=== PATIENT | male | born 1960 | race Caucasian/White ===

== ENCOUNTER 2021-02-07 | Observation (INO) | payer MEDICAID, SELFPAY ==
[2021-02-07] VITALS (16 sets, daily range): BP systolic 100–190; BP diastolic 47–86; PULSE 51–70; RESP 14–20; TEMP 36.1–37.3; O2SAT 90–100; BMI 28.7
--- NOTE | 2021-02-07 | ECHO_ITS ---
Patient Info Name: Raulito Baig Age: 61 years : 1960 Gender: Male Ht: 71 in Wt: 205 lbs BSA: 2.18 m2 HR: 56 bpm BP: 173 / 76 mmHg Technical Quality: Fair Exam Date: 02/07/2021 1:04 PM Exam Location: [facility] Patient Status: Outpatient Admit Date: 02/07/2021 Staff Ordering Physician: Gera Moss MD Community Program Assistant: Magalie Syed RDCS Attending Provider: Shashi Ly MD Exam Type: CA echo doppler color flow Study Info Complete two-dimensional, color flow and Doppler transthoracic echocardiogram is performed. Summary 1. Complete two-dimensional, color flow and Doppler transthoracic echocardiogram is performed. 2. Left ventricular chamber dimension is normal. 3. Left ventricular systolic function is hyperdynamic, estimated at >70%. 4. There is moderately increased left ventricular wall thickness. 5. The left ventricular diastolic function is grade I diastolic dysfunction. 6. E/e' 19 is elevated. 7. Left atrial chamber dimension is moderately enlarged. 8. There is moderate aortic valve sclerosis. 9. There is moderate aortic valve stenosis with a peak velocity of 445 cm/s, mean gradient of 12 mmHg, and aortic valve area of 1.3 cm2. 10. There is mild to moderate aortic valve regurgitation. 11. The mitral valve has moderately calcified annulus. 12. There is mild mitral valve regurgitation. 13. No pulmonary hypertension, estimated pulmonary arterial systolic pressure is 19 mmHg. Left Ventricle E/e' 19 is elevated. Left ventricular chamber dimension is normal. Left ventricular systolic function is hyperdynamic, estimated at >70%. There is moderately increased left ventricular wall thickness. The left ventricular diastolic function is grade I diastolic dysfunction. Right Ventricle Right ventricular systolic function is normal and with normal TAPSE 3.5 cm. Right ventricular chamber dimension is normal. Left Atria Left atrial chamber dimension is moderately enlarged. Right Atria Right atrial chamber dimension is normal. Aortic Valve The aortic valve is probable trileaflet. There is moderate aortic valve sclerosis. There is moderate aortic valve stenosis with a peak velocity of 445 cm/s, mean gradient of 12 mmHg, and aortic valve area of 1.3 cm2. There is mild to moderate aortic valve regurgitation. Pulmonic Valve There is no pulmonic regurgitation. Mitral Valve The mitral valve has moderately calcified annulus. There is no mitral valve stenosis. There is mild mitral valve regurgitation. Tricuspid Valve There is no tricuspid valve regurgitation. No pulmonary hypertension, estimated pulmonary arterial systolic pressure is 19 mmHg. Pericardium/Pleural There is no pericardial effusion. Inferior Vena Cava Normal inferior vena cava with >50% collapse upon inspiration consistent with normal right atrial pressure, 5 mmHg. Aorta The aortic root size at the sinus of Valsalva is normal. Left Ventricular Outflow Tract Name Value Normal LVOT 2D LVOT Diameter 2.3 cm LVOT Doppler LVOT Peak Gradient 5 mmHg LVOT Mean Gradient 2 mmHg
--- NOTE | ~2021-02-07 | XR_ITS ---
XR chest 1V portable 02/07/2021 01:10 Indication: Hypoxia Procedure: AP portable chest Comparison: No prior studies for comparison. Findings: Elevated right diaphragm. Mild interstitial edema. Right basilar atelectasis. Borderline he art size for technique. Impression: 1: Borderline heart size with mild interstitial edema. Reviewed, dictated and finalized at location A. Impression: 1: Borderline heart size with mild interstitial edema.
--- NOTE | ~2021-02-07 | CT_ITS ---
EXAMINATION: CT abdomen pelvis wo con DATE: 02/07/2021 03:35 INDICATION: Cellulitis TECHNIQUE: Computed tomography (CT) of the abdomen and pelvis was performed without intravenous contr ast. The dose-length product was 737.65 mGy-cm. Automated exposure control and iterative reconstruction technique were employed. COMPARISON: Scrotal ultrasound dated 02/07/2021. FINDINGS: Left lower lobe atelectasis. Cardiomegaly. No significant pleural or pericardial effusion. Mildly elevated right diaphragm. Gallstones. The liver, adrenal glands and kidneys are unremarkable. Spleen within normal limits. No pancreatic abnormalities. There is scrotal wall thickening and edema, consistent with cellulitis. No abnormal gas in the soft tissues. No obvious abscess. Nonobstructive bowel gas pattern. No free air or free fluid. There is surgical change in the abdomen and pelvis. IMPRESSION: 1. Scrotal wall thickening with edema, consistent with cellulitis. 2: Cholelithiasis. Reviewed, dictated and finalized at location A.
--- NOTE | ~2021-02-07 | US_ITS ---
US scrotum doppler INDICATION: Right scrotal cellulitis TECHNIQUE: Testicular sonogram utilizing grayscale and color Doppler FINDINGS: Left testicle is surgically absent. There is diffuse thickening of the scrotal soft tissues with hyperemia. Normal testicular flow. Epididymis unremarkable. IMPRESSION: 1. Diffuse right extratesticular scrotal soft tissue edema with hyperemia, compatible with celluliti s. Reviewed, dictated and finalized at location A. IMPRESSION: 1. Diffuse right extratesticular scrotal soft tissue edema with hyperemia, com patible with cellulitis.
--- NOTE | ~2021-02-07 | US_ITS ---
EXAMINATION: US venous doppler [facility] DATE: 02/09/2021 11:01 INDICATION: Left lower limb swelling. TECHNIQUE: Grayscale ultrasound images without and with compression and Doppler ultrasound images of the left lower extremity veins were obtained. COMPARISON: None. FINDINGS: The visualized portions of left common femoral vein, profunda (deep) femoral vein, femoral vein, popl iteal vein, peroneal veins, posterior tibial veins, and greater saphenous vein outflow are patent. IMPRESSION: 1. No deep venous thrombosis. Reviewed, dictated and finalized at location A.
--- NOTE | 2021-02-07 00:41 | ED.MALEGU ---
HPI - Male Genitourinary General Chief complaint: Urogenital-Male Stated complaint: TESTICULAR PAIN Time Seen by Provider: 02/07/21 00:25 History of Present Illness HPI Narrative: History limited by poor historian. 61 yo male w/ h/o testicular cancer s/p left orchiectomy presents to the ED c/o testicle pain. He reports that he has had pain and swelling to the scrotum and testicles for quite some time. He was previously seen at another hospital and put on antibiotcs. This helped temporarily. It is not clear exactly when his symptoms started. No fever. Related Data Allergies Allergy/AdvReac Type Severity Reaction Status Date / Time iohexol Allergy Severe Anaphylaxis Verified 02/07/21 03:43 [From contrast - CT, X-RAY] Review of Systems Constitutional: Constitutional: Denies fever(s) Eyes: Eyes: Reports no additional eye complaints Cardiovascular: Cardiovascular: Denies chest pain Respiratory: Respiratory: Denies dyspnea Gastrointestinal: Gastrointestinal: Denies abdominal pain Genitourinary: Genitourinary: Reports as per HPI Neurologic: Reports system reviewed and no additional complaints, except as documented [facility] Past Medical History Medical History (Updated 02/07/21 @ 06:41 by Larry Meyers MD) Hypertension Surgical History Surgical History (Updated 02/07/21 @ 06:37 by Larry Meyers MD) History of orchiectomy Social History Social History (Updated 02/07/21 @ 06:37 by Larry Meyers MD) Smoking status: Current every day smoker Exam Const: General: no acute distress, alert and ill appearing chronically HENMT: Head: normal to inspection Mouth: Yes dry mucous membranes Eyes: Pupils: Equal, round and reactive pupils present Neck: Neck: normal visual inspection Resp: Effort & Inspection: normal respiratory effort Auscultation: rhonchi Cardio: Rate: bradycardic Rhythm: regular rhythm GI: GI Palp: Yes Soft to palpation and No Tenderness to palpation present (GI) : Other: Scrotum swollen, relatively firm. Mild erythema. tender. No wounds or crepitus. Scarring to right inguinal fold. Skin: General skin exam: normal color Neuro: General: patient oriented x3 and moves all extremities Extrem: General: edema bilateral (1+) Course Vital Signs Vital signs: Vital Signs Temperature 36.1 C L 02/07/21 00:04 Pulse Rate 57 L 02/07/21 00:04 Respiratory Rate 20 02/07/21 00:04 Blood Pressure 100/54 L 02/07/21 00:04 Pulse Oximetry 90 02/07/21 00:04 Temperature 36.1 C L 02/07/21 06:21 Pulse Rate 52 L 02/07/21 06:21 Respiratory Rate 14 02/07/21 06:21 Blood Pressure 116/47 L 02/07/21 06:21 Pulse Oximetry 100 02/07/21 06:21 MDM - Male Genitourinary Differential Diagnosis Differential diagnosis: Likely other (scrotal abscess, mass, cellulitis, COPD, pneumonia) Medical Records Attestation: I reviewed the patient's medical records. Lab Data Attestation: I reviewed the patient's lab results. Result diagrams: 02/07/21 01:19 02/07/21 01:19 Labs: Lab Results 02/07/21 02/07/21 02/07/21 Range/Units 01:19 01:19 03:02 WBC 5.9 (4.5-10.0) K/mm3 RBC 4.03 L (4.6-6.20) M/mm3 Hgb 11.8 L (14.0-18.0) g/dL Hct 37.8 L (42.0-52.0) % MCV 93.8 (80-100) fl MCH 29.3 (26-34) pg MCHC 31.2 L (32-36) g/dl RDW 14.0 (11.5-14.5) % Plt Count 146 L (150-375) k/mm3 MPV 9.9 (7.4-10.4) fl Immature Gran % (Auto) 0.2 (0-0.5) % Neut % (Auto) 79.5 H (45.5-73.1) % Lymph % (Auto) 10.6 L (18.3-44.2) % Stephenson % (Auto) 6.7 (2.6-8.5) % Eos % (Auto) 2.5 (0-4.4) % Baso % (Auto) 0.5 (0.2-1.2) % Lymph # (Auto) 0.63 L (0.9-3.2) K/mm3 Stephenson # (Auto) 0.4 (0.1-0.6) K/mm3 Eos # (Auto) 0.2 (0-0.3) K/mm3 Baso # (Auto) 0.0 (0.0-0.1) K/mm3 Abs Immat Gran (auto) 0.01 (0.00-0.031) K/mm3 Absolute Neuts (auto) 4.7 (1.3-6.7) K/mm3 Absolute Nucleated RBC
--- NOTE | 2021-02-07 00:49 | ECG_ITS ---
Measurements Intervals [place] Rate: 51 P: 44 [place]: 177 QRS: -30 QRSD: 152 T: 28 QT: 447 QTc: 414 Interpretive Statements SINUS BRADYCARDIA RIGHT BUNDLE BRANCH BLOCK ABNORMAL ECG Electronically Signed On 02-07-2021 8:06:24 CDT by Bonilla Begum D.O.
[2021-02-07 01:26] LABS: Basophils Percent Auto 0.5 % (0.2-1.2); Eosinophils Absolute Auto 0.2 K/mm3 (0-0.3); Eosinophils Percent Auto 2.5 % (0-4.4); Hematocrit 37.8 % (42.0-52.0); Hemoglobin 11.8 g/dL (14.0-18.0); Immature Granulocyte Absolute 0.01 K/mm3 (0.00-0.031); Immature Granulocyte Percent A 0.2 % (0-0.5); Lymphocytes Absolute Auto 0.63 K/mm3 (0.9-3.2); Lymphocytes Percent Auto 10.6 % (18.3-44.2); Mean Corpuscular HGB Conc 31.2 g/dl (32-36); Mean Corpuscular Hemoglobin 29.3 pg (26-34); Mean Corpuscular Volume 93.8 fl (80-100); Mean Platelet Volume 9.9 fl (7.4-10.4); Monocytes Absolute Auto 0.4 K/mm3 (0.1-0.6); Monocytes Percent Auto 6.7 % (2.6-8.5); Neutrophils Absolute Auto 4.7 K/mm3 (1.3-6.7); Neutrophils Percent Auto 79.5 % (45.5-73.1); Platelet Count Result 146 k/mm3 (150-375); Red Blood Count 4.03 M/mm3 (4.6-6.20); White Blood Count 5.9 K/mm3 (4.5-10.0)
[2021-02-07 01:49] LABS: Alanine Aminotransferase 9 U/L (4-50); Albumin Level 3.7 g/dL (3.5-5.1); Alkaline Phosphatase 63 U/L (38-126); Anion Gap 9 mmol/L (8-16); Aspartate Amino Transferase 16 U/L (17-59); Bilirubin,Total 0.3 mg/dL (0.2-1.3); Blood Urea Nitrogen 28 mg/dL (9-20); Calcium 8.9 mg/dL (8.4-10.2); Carbon Dioxide 24 mmol/L (22-30); Chloride 100 mmol/L (98-107); Estimated CRCL calculation 70 ml/min; Estimated Glomerular Filt Rate > 60; Glucose 137 mg/dL (65-110); Potassium 3.4 mmol/L (3.4-5.0); Sodium 133 mmol/L (137-145)
[2021-02-07 03:23] LABS: Add Urine Microscopic? YES; Appearance Urine Clear (Clear); Bilirubin Urine Negative (Negative); Blood Urine Negative (Negative); Color Urine Yellow (Yellow); Glucose Urine UA Negative (Negative); Ketones Urine Negative (Negative); Leukocyte Esterase Ur Negative LEU/UL (Negative); Mucus Urine Rare /lpf; Nitrate Urine Negative (Negative); Protein Urine Negative (Negative); Specific Grav Ur 1.029 (1.001-1.035); Squamous Epithelial Cell Urine Occasional /hpf (Few); WBC Urine 0-3 /hpf
[2021-02-07] MEDS: IPRATROPIUM BR 0.02% INH SOLN 0.5 MG/2.5 ML VIAL INHALATION ×3 (04:04→20:24)
[2021-02-07] MEDS: ALBUTEROL SULFATE NEB 2.5 MG/0.5 ML INH 5 MG INHALATION ×3 (04:04→20:24)
--- NOTE | 2021-02-07 06:34 | ADMGEN ---
This patient, Raulito Baig, was [facility] at 0630. Patient/family oriented to hospital policies and general routines including ID bracelet, bed and alarms, visiting hours, pain management, procedures, bathroom and other care routines, personal items, smoking policy, room service/diet, and visiting hours. Information on how to activate the Rapid Response Team has been discussed. Patient/Family are encouraged to report perceived risks to care and to ask questions if they do not understand what they are told or what they should do.
--- NOTE | 2021-02-07 11:28 | PM.IMHP ---
H&P: HPI History of Present Illness Date/Time: 02/07/21 11:28 Chief Complaint: Scrotal pain Narrative: 61 yo male w/ h/o testicular cancer s/p left orchiectomy presents to the ED c/oNot feeling well and scrotal swelling and pain. He reports the swelling has worsened since past 3 days however he did have swelling in the past prior to that as well for several months. He has a history of testicular cancer status post left orchidectomy which was done 15 years ago in [place]. He also has right groin scarring which he states is after cardiac catheterization done about a year and a half ago in [place]. He moved from [place] 6 years ago and was seen physicians in [place] as he was told there are better physicians there. He denies any fever but however reports that his constant cold. No recorded temperature. Denies any shortness of breath or chest pain or leg swelling. Review of Systems Review of Systems: - CONSTITUTIONAL: Denies weight loss, fever and chills. Reports feeling cold all the time - HEENT: Denies changes in vision and hearing - RESPIRATORY: Denies SOB and cough. - CV: Denies palpitations and CP. - GI: Denies abdominal pain, nausea, vomiting and diarrhea. - : Denies dysuria and urinary frequency. reports scrotal swelling - MSK: Denies myalgia and joint pain. - SKIN: Denies rash and pruritus. - NEUROLOGICAL: Denies headache and syncope. - PSYCHIATRIC: Denies recent changes in mood. Denies anxiety and depression. All systems reviewed & are unremarkable except as noted in HPI and below Constitutional: Constitutional: Reports fatigue and Reports weakness Neurologic: Reports weakness Endocrine: Endocrine: Reports fatigue [facility] Past Medical History Medical History (Updated 02/07/21 @ 11:56 by Gera Moss MD) Hypertension Surgical History Surgical History (Updated 02/07/21 @ 06:37 by Larry Meyers MD) History of orchiectomy Social History Social History (Updated 02/07/21 @ 06:37 by Larry Meyers MD) Smoking status: Current every day smoker Alcohol intake: never Substance use: never Substance use type: does not use Spiritual care concerns: No Meds Home Medications and Allergies Home Medications Medication Instructions Recorded Confirmed Type amlodipine 10 mg PO DAILY 02/07/21 02/07/21 History carvedilol 25 mg PO BID 02/07/21 02/07/21 History clopidogrel 75 mg PO DAILY 02/07/21 02/07/21 History lisinopril 20 mg PO DAILY 02/07/21 02/07/21 History pantoprazole 40 mg PO DAILY 02/07/21 02/07/21 History Allergies Allergy/AdvReac Type Severity Reaction Status Date / Time iohexol Allergy Severe Anaphylaxis Verified 02/07/21 03:43 [From contrast - CT, X-RAY] Vital Signs Vital Signs - 24 hr 02/07/21 00:04 02/07/21 01:52 02/07/21 02:57 Temperature 97.0 F L Pulse Rate 57 L 51 L 64 Respiratory Rate 20 20 15 Blood Pressure 100/54 L 104/57 L 169/78 H Pulse Oximetry 90 97 96 02/07/21 03:00 02/07/21 04:15 02/07/21 05:30 Temperature 98.0 F Pulse Rate 52 L 54 L 52 L Respiratory Rate 18 18 18 Blood Pressure 129/65 113/48 L 133/53 L Pulse Oximetry 95 100 100 02/07/21 06:21 02/07/21 07:19 Temperature 97.0 F L 97.3 F L Pulse Rate 52 L 56 L Respiratory Rate 14 20 Blood Pressure 116/47 L 173/76 H Pulse Oximetry 100 94 Exam Narrative: Const: General: no acute distress, alert and ill appearing chronically HENMT: Head: normal to inspection Mouth: Yes dry mucous membranes Eyes: Pupils: Equal, round and reactive pupils present Neck: Neck: normal visual inspection, nontender, supple Resp: Effort & Inspection: normal respiratory effort Auscultation: rhonchi Cardio: Rate: regular Rhythm: regular rhythm systolic murmur all throughout precordium GI: GI Palp: Yes Soft to palpation and No Tenderness to palpation present (GI) : Other: Scrotum swollen, relatively firm. Mild erythema. tender to touch. No wounds or crepitus. S
[2021-02-07] MEDS: oxyCODONE HCL (*CRX) 5 MG TAB IR PO ×2 (12:03→17:59)
[2021-02-07] MEDS: SODIUM CHLORIDE 0.9% IV 1,000 ML 75 ML IV CONT (12:05)
--- NOTE | 2021-02-07 13:06 | WPDURCON ---
Urology Consult Note HPI Date Seen: 02/07/21 Requesting Physician: Shashi Ly MD Primary Care Provider: PATIENT CARE ASSOCIATE PHYSICIAN Consult Narrative Narrative: Raulito Baig is a 61 year old male who presented to the [place] ER yesterday evening with scrotal pain and swelling. The patient reports his discomfort started several days ago and progressively worsened. He denies fevers or chills. He has a history of orchiectomy for testicular cancer [facility] Past Medical History Medical History (Updated 02/07/21 @ 11:56 by Gera Moss MD) Hypertension Surgical History Surgical History (Updated 02/07/21 @ 06:37 by Larry Meyers MD) History of orchiectomy Social History Social History (Updated 02/07/21 @ 06:37 by Larry Meyers MD) Smoking status: Current every day smoker Alcohol intake: never Substance use: never Substance use type: does not use Spiritual care concerns: No Meds Home Medications and Allergies Home Medications Medication Instructions Recorded Confirmed Type amlodipine 10 mg PO DAILY 02/07/21 02/07/21 History carvedilol 25 mg PO BID 02/07/21 02/07/21 History clopidogrel 75 mg PO DAILY 02/07/21 02/07/21 History lisinopril 20 mg PO DAILY 02/07/21 02/07/21 History pantoprazole 40 mg PO DAILY 02/07/21 02/07/21 History Allergies Allergy/AdvReac Type Severity Reaction Status Date / Time iohexol Allergy Severe Anaphylaxis Verified 02/07/21 03:43 [From contrast - CT, X-RAY] Vital Signs Vital Signs - 24 hr 02/07/21 00:04 02/07/21 01:52 02/07/21 02:57 Temperature 97.0 F L Pulse Rate 57 L 51 L 64 Respiratory Rate 20 20 15 Blood Pressure 100/54 L 104/57 L 169/78 H Pulse Oximetry 90 97 96 02/07/21 03:00 02/07/21 04:15 02/07/21 05:30 Temperature 98.0 F Pulse Rate 52 L 54 L 52 L Respiratory Rate 18 18 18 Blood Pressure 129/65 113/48 L 133/53 L Pulse Oximetry 95 100 100 02/07/21 06:21 02/07/21 07:19 Temperature 97.0 F L 97.3 F L Pulse Rate 52 L 56 L Respiratory Rate 14 20 Blood Pressure 116/47 L 173/76 H Pulse Oximetry 100 94 Results Labs CBC & Chem 7: 02/07/21 01:19 02/07/21 01:19 Labs: Short CBC 02/07/21 Range/Units 01:19 WBC 5.9 (4.5-10.0) K/mm3 Hgb 11.8 L (14.0-18.0) g/dL Hct 37.8 L (42.0-52.0) % Plt Count 146 L (150-375) k/mm3 BMP 02/07/21 01:19 Sodium 133 L Potassium 3.4 Chloride 100 Carbon Dioxide 24 BUN 28 H Creatinine 1.00 Glucose 137 H Calcium 8.9 Liver Function 02/07/21 Range/Units 01:19 Total Bilirubin 0.3 (0.2-1.3) mg/dL AST 16 L (17-59) U/L ALT 9 (4-50) U/L Alkaline Phosphatase 63 (38-126) U/L Albumin 3.7 (3.5-5.1) g/dL Urine 02/07/21 Range/Units 03:02 Urine Color Yellow (Yellow) Urine Appearance Clear (Clear) Urine pH 5.0 (5.0-9.0) Ur Specific [place] 1.029 (1.001-1.035) Urine Protein Negative (Negative) mg/dL Urine Glucose (UA) Negative (Negative) mg/dL
--- NOTE | 2021-02-07 13:09 | WPDURCON ---
Assessment and Plan Additional Plan 65M admitted to Hospital Medicine Service with signs of scrotal cellulitis. 1. Agree with admission to medicine. No need for acute urologic intervention. 2. Agree with antibiotic, currently on imipenem and vancomycin, consider ID consultation. 3. Monitor vital signs and Ins and Outs. If patient develops change in clinic status, contact Urology detective automobile section urgently. Urology will continue to follow. Urology Consult Note HPI Date Seen: 02/07/21 Requesting Physician: Shashi Ly MD Primary Care Provider: ASSESSMENT ANALYST PHYSICIAN Consult Narrative Narrative: Raulito Baig is a 61 year old male who presented overnight to the [place] ER for scrotal pain and swelling worsening since Tuesday. He reports he underwent orchiectomy many year ago (about 14) for a left testicular cancer but is hazy on the details. He denies fevers, chills or other signs of systemic infection/sepsis. On admission his WBC 5.9, his UA is negative for signs of infection. He underwent scrotal US and then CT abdomen and pelvis that demonstrated scrotal thickening consistent with cellulitis and no signs of Antonia's gangrene on imaging. Review of Systems Constitutional: Constitutional: Denies anorexia, Reports chills, Reports fatigue, Denies fever(s) and Denies night sweats Eyes: Eyes: Reports as per HPI ENT: Reports system reviewed and no additional complaints, except as documented Cardiovascular: Cardiovascular: Reports as per HPI Respiratory: Respiratory: Reports no additional respiratory complaints Gastrointestinal: Gastrointestinal: Reports as per HPI and Reports no additional gastrointestinal complaints Genitourinary: Genitourinary: Reports no additional male genitourinary complaints Musculoskeletal: Musculoskeletal: Reports no additional musculoskeletal complaints Integumentary/Breasts: Skin/Breast: Reports system reviewed and no additional complaints, except as docu Neurologic: Reports system reviewed and no additional complaints, except as documented Psychiatric: Psychiatric: Reports no additional psychiatric complaints Endocrine: Endocrine: Reports no additional endocrine complaints Hematologic/Lymphatic: Hematologic/Lymphatic: Reports no additional hematologic/lymphatic complaints Allergic/Immunologic: Allergic/Immunologic: Reports no additional allergic/immunologic complaints [facility] Past Medical History Medical History (Updated 02/07/21 @ 11:56 by Gera Moss MD) Hypertension Surgical History Surgical History (Updated 02/07/21 @ 06:37 by Larry Meyers MD) History of orchiectomy Social History Social History (Updated 02/07/21 @ 06:37 by Larry Meyers MD) Smoking status: Current every day smoker Alcohol intake: never Substance use: never Substance use type: does not use Spiritual care concerns: No Meds Home Medications and Allergies Home Medications Medication Instructions Recorded Confirmed Type amlodipine 10 mg PO DAILY 02/07/21 02/07/21 History carvedilol 25 mg PO BID 02/07/21 02/07/21 History clopidogrel 75 mg PO DAILY 02/07/21 02/07/21 History lisinopril 20 mg PO DAILY 02/07/21 02/07/21 History pantoprazole 40 mg PO DAILY 02/07/21 02/07/21 History Allergies Allergy/AdvReac Type Severity Reaction Status Date / Time iohexol Allergy Severe Anaphylaxis Verified 02/07/21 03:43 [From contrast - CT, X-RAY] Vital Signs Vital Signs - 24 hr 02/07/21 00:04 02/07/21 01:52 02/07/21 02:57 Temperature 97.0 F L Pulse Rate 57 L 51 L 64 Respiratory Rate 20 20 15 Blood Pressure 100/54 L 104/57 L 169/78 H Pulse Oximetry 90 97 96 02/07/21 03:00 02/07/21 04:15 02/07/21 05:30 Temperature 98.0 F Pulse Rate 52 L 54 L 52 L Respiratory Rate 18 18 18 Blood Pressure 129/65 113/48 L 133/53 L Pulse Oximetry 95 100 100 02/07/21 06:21 02/07/21 07:19 Temperature 97.0 F L 97.3 F L Pulse Rate 52 L 56 L Respiratory Rate 14 20 Blood Pressur
[2021-02-07] MEDS: amLODIPine BESYLATE 5 MG TABLET 10 MG PO (14:50)
[2021-02-07] MEDS: lisinopriL 20 MG TABLET PO (14:54)
[2021-02-07] MEDS: CLOPIDOGREL BISULFATE 75 MG TABLET PO (14:54)
[2021-02-07] MEDS: carvediloL 25 MG TABLET PO ×2 (14:54→23:54)
[2021-02-07] MEDS: PANTOPRAZOLE 40 MG TABLET PO (14:54)
[2021-02-07] MEDS: ENOXAPARIN 40 MG/0.4 ML SYRINGE SUB-Q (19:16)
[2021-02-07] MEDS: LORazepam INJ (*CRX) 2 MG/ML VIAL 0.5 MG IV PUSH (22:34)
[2021-02-08] VITALS (15 sets, daily range): BP systolic 150–163; BP diastolic 50–66; PULSE 54–62; RESP 14–18; TEMP 36.2–36.9; O2SAT 90–93
[2021-02-08] MEDS: ALBUTEROL SULFATE NEB 2.5 MG/0.5 ML INH 5 MG INHALATION ×5 (02:51→20:28)
[2021-02-08] MEDS: IPRATROPIUM BR 0.02% INH SOLN 0.5 MG/2.5 ML VIAL INHALATION ×5 (02:51→20:28)
--- NOTE | 2021-02-08 04:21 | PC.NURSE ---
PT SLEEPING SINCE ATIVAN GIVEN. AROUSES EASILY BUT RETURNS TO SLEEP EASILY
[2021-02-08] MEDS: LORazepam INJ (*CRX) 2 MG/ML VIAL 0.5 MG IV PUSH ×2 (06:32→19:45)
[2021-02-08 07:06] LABS: Basophils Percent Auto 0.7 % (0.2-1.2); Eosinophils Absolute Auto 0.2 K/mm3 (0-0.3); Eosinophils Percent Auto 3.8 % (0-4.4); Hemoglobin 11.5 g/dL (14.0-18.0); Immature Granulocyte Absolute 0.02 K/mm3 (0.00-0.031); Immature Granulocyte Percent A 0.4 % (0-0.5); Lymphocytes Absolute Auto 0.73 K/mm3 (0.9-3.2); Lymphocytes Percent Auto 13.4 % (18.3-44.2); Mean Corpuscular HGB Conc 31.9 g/dl (32-36); Mean Corpuscular Volume 90.7 fl (80-100); Mean Platelet Volume 10.9 fl (7.4-10.4); Monocytes Absolute Auto 0.5 K/mm3 (0.1-0.6); Monocytes Percent Auto 9.5 % (2.6-8.5); Neutrophils Absolute Auto 3.9 K/mm3 (1.3-6.7); Neutrophils Percent Auto 72.2 % (45.5-73.1); Platelet Count Result 152 k/mm3 (150-375); Red Blood Count 3.97 M/mm3 (4.6-6.20); Red Cell Distribution Width 13.6 % (11.5-14.5); White Blood Count 5.5 K/mm3 (4.5-10.0)
[2021-02-08 07:26] LABS: Anion Gap 7 mmol/L (8-16); Blood Urea Nitrogen 11 mg/dL (9-20); Calcium 8.7 mg/dL (8.4-10.2); Carbon Dioxide 24 mmol/L (22-30); Chloride 100 mmol/L (98-107); Estimated CRCL calculation 116 ml/min; Estimated Glomerular Filt Rate > 60; Glucose 100 mg/dL (65-110); Potassium 3.7 mmol/L (3.4-5.0); Sodium 131 mmol/L (137-145)
[2021-02-08] MEDS: SODIUM CHLORIDE 0.9% IV 1,000 ML 75 ML IV CONT (08:05)
[2021-02-08] MEDS: carvediloL 25 MG TABLET PO ×2 (08:06→21:51)
[2021-02-08] MEDS: lisinopriL 20 MG TABLET PO (08:06)
[2021-02-08] MEDS: CLOPIDOGREL BISULFATE 75 MG TABLET PO (08:06)
[2021-02-08] MEDS: amLODIPine BESYLATE 5 MG TABLET 10 MG PO (08:06)
[2021-02-08] MEDS: NICOTINE (*PBKC) 14 MG PATCH 1 PATCH TRANSDERM ×2 (08:07→18:48)
[2021-02-08] MEDS: PANTOPRAZOLE 40 MG TABLET PO (08:07)
--- NOTE | 2021-02-08 10:52 | PM.IMPN ---
Progress Note: A&P Assessment and Plan (1) Cellulitis, scrotum: Code(s): N49.2 - Inflammatory disorders of scrotum Status: Acute Assessment and Plan: Ultrasound and exam consistent with scrotal cellulitis - continue imipenem and vancomycin - will provide scrotal support - white blood cell count normal, blood cultures pending - urology consult - patient reports no concern for STIs (2) Systolic murmur: Code(s): R01.1 - Cardiac murmur, unspecified Status: Acute Assessment and Plan: echo shows moderate aortic stenosis. This should be followed up outpt (3) History of stroke: Code(s): Z86.73 - Personal history of transient ischemic attack (TIA), and cerebral infarction without residual deficits Status: Acute Assessment and Plan: chronic, continue Plavix - encouraged to quit smoking (4) Hypertension: Code(s): I10 - Essential (primary) hypertension Status: Acute Assessment and Plan: last blood pressure 163/64 - will stop fluids and continue amlodipine, carvedilol, and lisinopril (5) Nicotine dependence: Code(s): F17.200 - Nicotine dependence, unspecified, uncomplicated Status: Acute Assessment and Plan: Encouraged pt to quit smoking Time Spent With Patient Time with patient: 25 - 35 minutes Subjective Date/time seen: 02/08/21 10:52 Interval history: Pt is a 61-year-old male here for scrotal cellulitis. Patient states his clinical course is unchanged. He still has swelling to the scrotum. He has no discharge from the area. He recently got back from [place] but denies any sexual encounters or risks for STDs. he has no history of CHF or valve disease that he knows of. He denies fevers, chills, nausea, vomiting, diarrhea or constipation. He does have some abdominal pain today and states he has Crohn's disease but no blood in his stool or diarrhea at this time. He is still able to eat okay. Review of Systems Review of Systems: All systems reviewed & are unremarkable except as noted in HPI and below Exam Narrative: General: Well developed well nourished patient in NAD HEENT: normocephalic Neck: supple Neuro: Alert and oriented x4 CV:RRR with loud systolic murmur best heard at the right 2nd ICS Resp:CTA Abd: Soft, non distended. Slight pain to the lower quadrants. Positive bowel sounds Extremities: No swelling, erythema, or pain to palpation. : scrotal swelling without discharge Objective Data Vital Signs Vital Signs: Vital Signs - 24 hr 02/07/21 14:00 02/07/21 14:18 02/07/21 14:30 Temperature 99.1 F Pulse Rate 66 66 70 Respiratory Rate 16 16 16 Blood Pressure 190/86 H Pulse Oximetry 92 02/07/21 14:54 02/07/21 20:26 02/07/21 20:32 Temperature Pulse Rate 64 57 L 62 Respiratory Rate 16 16 Blood Pressure Pulse Oximetry 92 02/07/21 22:00 02/07/21 23:54 02/08/21 00:00 Temperature 97.8 F Pulse Rate 58 L 62 62 Respiratory Rate 16 18 Blood Pressure 150/71 H 154/66 H Pulse Oximetry 95 92 02/08/21 02:52 02/08/21 02:58 02/08/21 05:55 Temperature 97.7 F Pulse Rate 54 L 58 L 57 L Respiratory Rate 14 14 16 Blood Pressure 163/64 H Pulse Oximetry 91 02/08/21 08:05 02/08/21 08:06 02/08/21 08:15 Temperature Pulse Rate 58 L 55 L 58 L Respiratory Rate 14 14 Blood Pressure Pulse Oximetry 92 Intake/Output Intake/Output: Intake & Output 02/05/21 02/06/21 02/07/21 02/08/21 23:59 23:59 23:59 23:59 Intake Total 1520 2070 Balance 1520 2070 Meds/Results Medications: Active Medications Generic Name Dose Route Start Last Admin Trade Name Ciro PRN Reason Stop Dose Admin Albuterol 5 mg 02/07/21 08:00 02/08/21 08:06 Albuterol Sulfate Neb 2.5 Mg/0.5 Ml Inh INHALATION 5 mg Q6HRT MARIA ESTHER Administration Amlodipine Besylate 10 mg 02/07/21 12:00 02/08/21 08:06 Amlodipine Besylate 5 Mg Tablet PO 10 mg
--- NOTE | 2021-02-08 12:43 | WPDUROPN2 ---
Progress Note: A&P Assessment and Plan (1) Cellulitis, scrotum: Code(s): N49.2 - Inflammatory disorders of scrotum Status: Acute Assessment and Plan: 1. Continue IV antibiotics per primary service preference, consider ID consultation. 2. Discussed scrotal support and elevation with the patient, he will see if this helps with his discomfort. 3. Serial exams, if worsening of physical exam is noted or change in patient status including vital sign worsening, contact Urology sales assistant institutional sales urgently. Urology will continue to follow, please call with questions or concerns. Subjective Subjective Date/Time Seen: 02/08/21 12:43 HALL-VSS, patient reports persisent scrotal pain and swelling. Exam Narrative: NAD, A&Ox3 RRR eWOB S/NT/ND Scrotal exam demonstrates significant improvment in erythema (less scarlet--still some erythema present), edema has also improved. No fluctuance to suggest drainable collection. No crepitus or other concernign findings. Significantly less tender, patient allows me to manipulate the scrotum far more than yesterday. Objective Data Vital Signs Vital Signs: Vital Signs - 24 hr 02/07/21 14:00 02/07/21 14:18 02/07/21 14:30 Temperature 99.1 F Pulse Rate 66 66 70 Respiratory Rate 16 16 16 Blood Pressure 190/86 H Pulse Oximetry 92 02/07/21 14:54 02/07/21 20:26 02/07/21 20:32 Temperature Pulse Rate 64 57 L 62 Respiratory Rate 16 16 Blood Pressure Pulse Oximetry 92 02/07/21 22:00 02/07/21 23:54 02/08/21 00:00 Temperature 97.8 F Pulse Rate 58 L 62 62 Respiratory Rate 16 18 Blood Pressure 150/71 H 154/66 H Pulse Oximetry 95 92 02/08/21 02:52 02/08/21 02:58 02/08/21 05:55 Temperature 97.7 F Pulse Rate 54 L 58 L 57 L Respiratory Rate 14 14 16 Blood Pressure 163/64 H Pulse Oximetry 91 02/08/21 08:00 02/08/21 08:05 02/08/21 08:06 Temperature Pulse Rate 58 L 55 L Respiratory Rate 14 Blood Pressure Pulse Oximetry 90 92 02/08/21 08:15 Temperature Pulse Rate 58 L Respiratory Rate 14 Blood Pressure Pulse Oximetry Intake/Output Intake/Output: Intake & Output 02/05/21 02/06/21 02/07/21 02/08/21 23:59 23:59 23:59 23:59 Intake Total 1520 2470 Balance 1520 2470 Meds/Results Medications: Active Medications Generic Name Dose Route Start Last Admin Trade Name Ciro PRN Reason Stop Dose Admin Albuterol 5 mg 02/07/21 08:00 02/08/21 08:06 Albuterol Sulfate Neb 2.5 Mg/0.5 Ml Inh INHALATION 5 mg Q6HRT MAIRA ESTHER Administration Amlodipine Besylate 10 mg 02/07/21 12:00 02/08/21 08:06 Amlodipine Besylate 5 Mg Tablet PO 10 mg DAILY MARIA ESTHER Administration Carvedilol 25 mg 02/07/21 12:00 02/08/21 08:06 Carvedilol 25 Mg Tablet PO 25 mg Q12HR MARIA ESTHER Administration Clopidogrel Bisulfate 75 mg 02/07/21 12:00 02/08/21 08:06 Clopidogrel Bisulfate 75 Mg Tablet PO 75 mg DAILY MARIA ESTHER Administration Enoxaparin Sodium 40 mg 02/07/21 18:00 02/07/21 19:16 Enoxaparin 40 Mg/0.4 Ml Syringe SUB-Q 40 mg Q24H MARIA ESTHER Administration Imipenem/Cilastatin Sodium 500 mg in 100 mls @ 300 mls/hr 02/07/21 12:00 02/08/21 11:36 Primaxin 500 Mg/D5w 100 Ml IVPB Infused Q6H MARIA ESTHER Infusion Vancomycin HCl 1,250 mg in 250 mls @ 200 mls/hr 02/07/21 15:00 02/08/21 03:49 Vancomycin 1,250 Mg/D5w 250 Ml IVPB Infused Q12H MARIA ESTHER Infusion Ipratropium [place] 0.5 mg 02/07/21 08:00 02/08/21 08:06 Ipratropium Br 0.02% Inh Soln 0.5 Mg/2.5 Ml Vial INHALATION 0.5 mg Q6HRT MARIA ESTHER Administration Lisinopril 20 mg 02/07/21 12:00 02/08/21 08:06 Lisinopril 20 Mg Tablet PO 20 mg DAILY MARIA ESTHER Administration Lorazepam 0.5 mg 02/07/21 17:55 02/08/21 06:32 Lorazepam Inj (*Crx) 2 Mg/Ml Vial IV PUSH 0.5 mg BID PRN Administration Anxiety Nicotine 1 patch 02/08/21 09:00 02/08/21 08:07 Nicotine (*Pbkc) 14 Mg Patch TRANSDERM 1 patch QAM MARIA ESTHER Administration Oxycodone HCl 5 mg
[2021-02-08 15:20] LABS: Vancomycin Trough 9.5 ug/mL (10.0-20.0)
[2021-02-08] MEDS: ENOXAPARIN 40 MG/0.4 ML SYRINGE SUB-Q (18:22)
[2021-02-09] VITALS (7 sets, daily range): BP systolic 124–177; BP diastolic 62–64; PULSE 54–69; RESP 12–16; TEMP 36.4; O2SAT 92–93
[2021-02-09] MEDS: ACETAMINOPHEN 500 MG TABLET 1000 MG PO (02:27)
[2021-02-09] MEDS: IPRATROPIUM BR 0.02% INH SOLN 0.5 MG/2.5 ML VIAL INHALATION ×2 (02:38→08:06)
[2021-02-09] MEDS: ALBUTEROL SULFATE NEB 2.5 MG/0.5 ML INH 5 MG INHALATION ×2 (02:39→08:06)
--- NOTE | 2021-02-09 06:52 | WPDUROPN2 ---
Progress Note: A&P Assessment and Plan (1) Cellulitis, scrotum: Code(s): N49.2 - Inflammatory disorders of scrotum Status: Acute Assessment and Plan: A bit difficult for me to say (without having previously seen patient) but cellulitis doesn't look too bad today. Pt. afebrile and blood cultures neg., so far. Eventual discharge on 2 weeks of either Septra DS or Cephalexin - will leave timing to hospitalists. Subjective Subjective Date/Time Seen: 02/09/21 06:52 Comfortable Review of Systems Cardiovascular: Cardiovascular: Denies chest pain, Denies lightheadedness, Denies palpitations and Denies dyspnea Respiratory: Respiratory: Denies dyspnea Gastrointestinal: Gastrointestinal: Denies diarrhea, Denies nausea and Denies vomiting Genitourinary: Genitourinary: Denies hematuria and Denies dysuria Endocrine: Endocrine: Denies palpitations Exam Const: General: no acute distress Resp: Effort & Inspection: normal respiratory effort GI: Inspection: non-distended GI Palp: No abdominal tenderness and No Guarding due to palpation present (GI) Auscultation: normal bowel sounds : Male General Exam: Yes edema and Yes erythema Objective Data Vital Signs Vital Signs: Vital Signs - 24 hr 02/08/21 08:00 02/08/21 08:05 02/08/21 08:06 Temperature Pulse Rate 58 L 55 L Respiratory Rate 14 Blood Pressure Pulse Oximetry 90 92 02/08/21 08:15 02/08/21 12:55 02/08/21 13:05 Temperature Pulse Rate 58 L 60 58 L Respiratory Rate 14 14 14 Blood Pressure Pulse Oximetry 02/08/21 14:00 02/08/21 20:31 02/08/21 20:36 Temperature 98.4 F Pulse Rate 58 L 61 58 L Respiratory Rate 16 14 14 Blood Pressure 150/60 H Pulse Oximetry 93 91 02/08/21 21:09 02/08/21 21:51 02/09/21 02:39 Temperature 97.1 F L Pulse Rate 59 L 59 L 60 Respiratory Rate 16 12 Blood Pressure 158/50 H Pulse Oximetry 92 02/09/21 02:47 02/09/21 05:50 Temperature 97.6 F Pulse Rate 60 60 Respiratory Rate 14 16 Blood Pressure 177/62 H Pulse Oximetry 92 Intake/Output Intake/Output: Intake & Output 02/06/21 02/07/21 02/08/21 02/09/21 23:59 23:59 23:59 23:59 Intake Total 1520 3570 900 Output Total 1200 Balance 1520 3570 -300 Meds/Results Medications: Active Medications Generic Name Dose Route Start Last Admin Trade Name Kaylanq PRN Reason Stop Dose Admin Albuterol 5 mg 02/07/21 08:00 02/09/21 02:39 Albuterol Sulfate Neb 2.5 Mg/0.5 Ml Inh INHALATION 5 mg Q6HRT MARIA ESTHER Administration Amlodipine Besylate 10 mg 02/07/21 12:00 02/08/21 08:06 Amlodipine Besylate 5 Mg Tablet PO 10 mg DAILY MARIA ESTHER Administration Carvedilol 25 mg 02/07/21 12:00 02/08/21 21:51 Carvedilol 25 Mg Tablet PO 25 mg Q12HR MARIA ESTHER Administration Clopidogrel Bisulfate 75 mg 02/07/21 12:00 02/08/21 08:06 Clopidogrel Bisulfate 75 Mg Tablet PO 75 mg DAILY MARIA ESTHER Administration Enoxaparin Sodium 40 mg 02/07/21 18:00 02/08/21 18:22 Enoxaparin 40 Mg/0.4 Ml Syringe SUB-Q 40 mg Q24H MARIA ESTHER Administration Imipenem/Cilastatin Sodium 500 mg in 100 mls @ 300 mls/hr 02/07/21 12:00 02/09/21 06:27 Primaxin 500 Mg/D5w 100 Ml IVPB 300 mls/hr Q6H MARIA ESTHER Administration Vancomycin HCl 1,750 mg in 500 mls @ 250 mls/hr 02/08/21 16:00 02/09/21 05:48 Vancomycin 1,750 Mg/D5w 500 Ml IVPB Infused Q12H MARIA ESTHER Infusion Ipratropium [place] 0.5 mg 02/07/21 08:00 02/09/21 02:38 Ipratropium Br 0.02% Inh Soln 0.5 Mg/2.5 Ml Vial INHALATION 0.5 mg Q6HRT MARIA ESTHER Administration Lisinopril 20 mg 02/07/21 12:00 02/08/21 08:06 Lisinopril 20 Mg Tablet PO 20 mg DAILY MARIA ESTHER Administration Lorazepam 0.5 mg 02/07/21 17:55 02/08/21 19:45 Lorazepam Inj (*Crx) 2 Mg/Ml Vial IV PUSH 0.5 mg BID PRN Administration Anxiety Nicotine 1 patch 02/08/21 09:00 02/08/21 08:07 Nicotine (*Mahamedkc) 14 Mg Patch TRANSDERM 1 patch QAM MARIA ESTHER Administration Oxycodone HCl
[2021-02-09 08:00] LABS: Hematocrit 40.5 % (42.0-52.0); Hemoglobin 13.4 g/dL (14.0-18.0); Mean Corpuscular HGB Conc 33.1 g/dl (32-36); Mean Corpuscular Hemoglobin 29.7 pg (26-34); Mean Corpuscular Volume 89.8 fl (80-100); Mean Platelet Volume 10.1 fl (7.4-10.4); Platelet Count Result 176 k/mm3 (150-375); Red Blood Count 4.51 M/mm3 (4.6-6.20); Red Cell Distribution Width 13.4 % (11.5-14.5); White Blood Count 5.2 K/mm3 (4.5-10.0)
[2021-02-09 08:13] LABS: Anion Gap 8 mmol/L (8-16); Blood Urea Nitrogen 9 mg/dL (9-20); CRP 5.2 mg/dL (<1.0); Calcium 9.5 mg/dL (8.4-10.2); Carbon Dioxide 23 mmol/L (22-30); Chloride 103 mmol/L (98-107); Estimated CRCL calculation 116 ml/min; Estimated Glomerular Filt Rate > 60; Glucose 149 mg/dL (65-110); Potassium 3.9 mmol/L (3.4-5.0); Sodium 134 mmol/L (137-145)
[2021-02-09] MEDS: NICOTINE (*PBKC) 14 MG PATCH 1 PATCH TRANSDERM (08:55)
[2021-02-09] MEDS: carvediloL 25 MG TABLET PO (08:56)
[2021-02-09] MEDS: CLOPIDOGREL BISULFATE 75 MG TABLET PO (08:56)
[2021-02-09] MEDS: lisinopriL 20 MG TABLET PO (08:57)
[2021-02-09] MEDS: PANTOPRAZOLE 40 MG TABLET PO (08:57)
[2021-02-09] MEDS: amLODIPine BESYLATE 5 MG TABLET 10 MG PO (08:57)
--- NOTE | 2021-02-09 09:14 | PM.DS ---
DS: Admitting Diagnosis Admitting Diagnosis scrotal cellulitis DS: Discharge Diagnosis Discharge Diagnosis (1) Cellulitis, scrotum: Code(s): N49.2 - Inflammatory disorders of scrotum Status: Acute Assessment and Plan: Ultrasound and exam consistent with scrotal cellulitis - Improved on imipenem and vancomycin. spoke with urology, sent home on keflex. pt to come back if symptoms worsen or he has a fever - contiue scrotal support - white blood cell count normal, blood cultures NGTD and will be monitored until finalized. - urology consult, f/u outpt - patient reports no concern for STIs (2) Systolic murmur: Code(s): R01.1 - Cardiac murmur, unspecified Status: Acute Assessment and Plan: echo shows moderate aortic stenosis. This should be followed up outpt (3) History of stroke: Code(s): Z86.73 - Personal history of transient ischemic attack (TIA), and cerebral infarction without residual deficits Status: Acute Assessment and Plan: chronic, continue Plavix - encouraged to quit smoking (4) Hypertension: Code(s): I10 - Essential (primary) hypertension Status: Acute Assessment and Plan: last blood pressure 124/64 -continue amlodipine, carvedilol, and lisinopril (5) Nicotine dependence: Code(s): F17.200 - Nicotine dependence, unspecified, uncomplicated Status: Acute Assessment and Plan: Encouraged pt to quit smoking DS: Summary Hospital Course Hospital Course: Patient is a 61-year-old who presented emergency room on February 07, 2021 for testicular pain and swelling. White blood cell count 5.9, hemoglobin 11.8, hematocrit 37.8, platelets 146. BMP relatively normal. Vitals 36.1? C, pulse 57, respiratory rate 20, blood pressure 100/54, pulse ox 90 in the ER. Testicular ultrasound showed diffused soft tissue edema with hyperemia comparable with cellulitis. Patient was admitted hospitalist service and started on imipenem and vancomycin and improved. The pain was controlled throughout his stay. Urology was consulted and agreed with the plan and okay with discharge. He will discharge on clot flex and follow up with them outpatient. If he continues to worsen or starts having fevers, the patient was instructed to come back to emergency room for. Overall, the patient was feeling good and ready for discharge. He requested that his home medications be refilled due to him losing them. He was educated about the worrisome signs and symptoms to come back to emergency room for was discharged stable condition. Date of service 02/11/2021 Status at Discharge Functional status at discharge: independent ambulation Time Spent with Patient Time attestation: Total time spent providing and/or coordinating discharge services:38 min Time spent: Greater than 30 minutes Exam Narrative: General: Well developed well nourished patient in NAD HEENT: normocephalic Neck: supple Neuro: Alert and oriented x4 CV:RRR with loud systolic murmur best heard at the right 2nd ICS Resp:CTA Abd: Soft, non distended. Slight pain to the lower quadrants. Positive bowel sounds Extremities: No swelling, erythema, or pain to palpation. : scrotal swelling without discharge DS: Data Data Completed and Pending Labs on day of discharge: Labs from last 24 hours 02/09/21 02/09/21 02/08/21 07:53 07:53 14:31 WBC 5.2 RBC 4.51 L Hgb 13.4 L Hct 40.5 L MCV 89.8 MCH 29.7 MCHC 33.1 RDW 13.4 Plt Count 176 MPV 10.1 Sodium 134 L Potassium 3.9 Chloride 103 Carbon Dioxide 23 Anion Gap 8 BUN 9 Creatinine 0.60 L Estim Creat Clear Calc 116 Estimated GFR > 60 Glucose 149 H Calcium 9.5 C-Reactive Protein 5.2 H Vancomycin Trough 9.5 L Preliminary micro results at discharge 02/07/21 14:31 Blood Culture - Preliminary Blood Discharge Plan Discharge Attendin
[2021-02-09] MEDS: ACETAMINOPHEN 325 MG TABLET 650 MG PO (09:29)
--- NOTE | 2021-02-17 12:08 | PC.NURSE ---
Blood cx are negative.
== END 2021-02-09 15:38 | disposition home or self-care (01) ==
LOC: ANHED 00:52 → ANH2MED 06:41
PROVIDERS: Internal Medicine; Physician Assistant; Admitting Provider Internal Medicine; Emergency Provider Emergency Medicine; Visit Provider Student in an Organized Health Care Education/Training Program
DX: N49.2 Inflammatory disorders of scrotum (principal); R01.1 Cardiac murmur, unspecified; I10 Essential (primary) hypertension; M79.89 Other specified soft tissue disorders; R94.31 Abnormal electrocardiogram [ECG] [EKG]; F17.210 Nicotine dependence, cigarettes, uncomplicated; Z85.47 Personal history of malignant neoplasm of testis; Z79.02 Long term (current) use of antithrombotics/antiplatelets; Z86.73 Personal history of transient ischemic attack (TIA), and cerebral infarction without residual deficits; Z90.79 Acquired absence of other genital organ(s)
CPT/HCPCS: 36415; 71045; 74176; 76870; 80048; 80053; 80202; 81001; 85025; 85027; 86140; 87040; 93005; 93306; 93971; 93976; 94640; 96361; 96365; 96366; 96367; 96372; 96375; 96376; 99285; A9270; G0378; J0743; J1650; J2060; J3370; J7030

== ENCOUNTER 2022-11-04 22:22 | Emergency (ER) | payer MEDICAID, SELFPAY ==
--- NOTE | ~2022-11-04 | XR_ITS ---
Portable chest x-ray Comparison: 02/07/2021 Clinical History: Cough, shortness of breath Findings: Lungs are clear, without focal consolidation or pleural effusion. Cardiomediastinal silho uette is stable. Bones and soft tissues are unremarkable. Impression: Normal chest. Reviewed, dictated and finalized at location . Impression: Normal chest.
[2022-11-04 22:24] VITALS: BP 121/50; PULSE 70; RESP 18; TEMP 36.8; O2SAT 97
--- NOTE | 2022-11-04 22:55 | PC.NURSE ---
Abhishek, [facility] number.
--- NOTE | 2022-11-04 23:32 | ECG_ITS ---
Measurements Intervals [place] Rate: 56 P: 52 SC: 169 QRS: -61 QRSD: 161 T: 41 QT: 449 QTc: 434 Interpretive Statements SINUS BRADYCARDIA POSSIBLE LEFT ATRIAL ENLARGEMENT RIGHT BUNDLE BRANCH BLOCK LEFT ANTERIOR FASCICULAR BLOCK LEFT VENTRICULAR HYPERTROPHY CANNOT RULE OUT SEPTAL INFARCT, AGE INDETERMINATE BASELINE WANDER- V2 ABNORMAL ECG COMPARED TO ECG 02/07/2021 01:20:01 LEFT ANTERIOR FASCICULAR BLOCK NOW PRESENT Electronically Signed On 11-05-2022 6:47:19 CDT by Bonilla Begum D.O.
--- NOTE | 2022-11-04 23:32 | ED.WEAKNESS ---
HPI - Weakness General Chief complaint: Weakness Stated complaint: weakness Time Seen by Provider: 11/04/22 22:50 History of Present Illness HPI Narrative: Patient is a 62-year-old male with a history of hypertension, prior stroke with left-sided weakness presenting with generalized weakness. Patient states that for the last several days he has just been feeling generally weak. Complains of mild diffuse headache. Denies focal numbness or weakness. Reports chronic dysarthria that is unchanged. Denies vision changes, fevers, chest pain, shortness of breath, abdominal pain, vomiting, diarrhea, dysuria, leg swelling. States that he does have a cough. Related Data Home Medications Medication Instructions Recorded Confirmed metoprolol succinate 50 mg mg PO 11/04/22 tablet,extended release 24 hr tamsulosin 0.4 mg capsule mg PO 11/04/22 Allergies Allergy/AdvReac Type Severity Reaction Status Date / Time iohexol Allergy Severe Anaphylaxis Verified 11/04/22 23:02 [From contrast - CT, X-RAY] ibuprofen Allergy Mild Other Verified 11/04/22 23:02 Review of Systems Review of Systems: All systems reviewed & are unremarkable except as noted in HPI and below PMFSH Past Medical History Medical History Hypertension Surgical History Surgical History History of orchiectomy Social History Social History Smoking status: Current every day smoker Alcohol intake: never Substance use: never Substance use type: does not use Spiritual care concerns: No Exam Narrative: GENERAL: Appears chronically ill, nontoxic, no acute distress HEAD: Normocephalic, atraumatic. EYES: PERRLA and EOMI. ENT: Nares clear, no rhinorrhea or epistaxis. Mucous membranes dry, poor dentition throughout NECK: Supple. CHEST: Diminished bilaterally HEART: Regular rate and rhythm ABDOMEN: Soft, nontender, nondistended EXTREMITIES: Normal range of motion. No edema. SKIN: Warm, dry, no rash. NEURO: No focal deficits. Alert and oriented x3. PSYCH: Normal mood and affect. Course Vital Signs Vital signs: Vital Signs Temperature 98.3 F 11/04/22 22:24 Pulse Rate 70 11/04/22 22:24 Respiratory Rate 18 11/04/22 22:24 Blood Pressure 121/50 L 11/04/22 22:24 Pulse Oximetry 97 11/04/22 22:24 Oxygen Delivery Room Air 11/04/22 22:24 Temperature 98.3 F 11/04/22 22:24 Pulse Rate 62 11/05/22 04:25 Respiratory Rate 14 11/05/22 04:25 Blood Pressure 154/75 H 11/05/22 04:25 Pulse Oximetry 94 11/05/22 04:25 Oxygen Delivery Room Air 11/04/22 22:24 MDM - Weakness MDM Narrative Medical decision making narrative: Patient is a 62-year-old male presenting with generalized weakness. Vitals are within normal limits. Patient is nontoxic and in no acute distress. Exam is remarkable for the above. EKG per my interpretation shows sinus bradycardia, left axis deviation, right bundle branch block, left anterior fascicular block, ST elevations in V2 but no other leads and there are no depressions. Patient denies any chest pain. Chest x-ray shows no focal consolidations, effusions, pneumothorax. Patient does look dry on CMP. CBC is at baseline. Troponin undetectable x2. UA is unremarkable. Patient received 2 L of fluids and on reevaluation he states that he feels improved. Orthostatic vitals are normal. Patient was able to ambulate and states that he feels back to baseline. Discussed the reassuring work-up with the patient. Advised that he follow-up with primary care and try to increase his intake of hydrating fluids. States that he needs a new PCP. We will provide the number for one. Appropriate return precautions given. Patient voiced understanding and is agreeable with plan. Discharged in stable condition. Differential Diagnosis Di
[2022-11-04 23:54] LABS: Basophils Percent Auto 0.3 % (0.2-1.2); Eosinophils Percent Auto 0.3 % (0-4.4); Hematocrit 39.9 % (42.0-52.0); Immature Granulocyte Absolute 0.02 K/mm3 (0.00-0.031); Immature Granulocyte Percent A 0.2 % (0-0.5); Lymphocytes Absolute Auto 0.53 K/mm3 (0.9-3.2); Lymphocytes Percent Auto 6.2 % (18.3-44.2); Mean Corpuscular HGB Conc 32.6 g/dl (32-36); Mean Corpuscular Volume 91.9 fl (80-100); Mean Platelet Volume 9.8 fl (7.4-10.4); Monocytes Absolute Auto 0.6 K/mm3 (0.1-0.6); Monocytes Percent Auto 6.4 % (2.6-8.5); Neutrophils Absolute Auto 7.4 K/mm3 (1.3-6.7); Neutrophils Percent Auto 86.6 % (45.5-73.1); Platelet Count Result 187 k/mm3 (150-375); Red Blood Count 4.34 M/mm3 (4.6-6.20); Red Cell Distribution Width 14.7 % (11.5-14.5); White Blood Count 8.6 K/mm3 (4.5-10.0)
[2022-11-05 00:07] LABS: INR 1.1; Prothrombin Time 14.7 Seconds (11.1-14.7)
[2022-11-05 00:08] LABS: Alanine Aminotransferase 10 U/L (6-50); Albumin Level 3.9 g/dL (3.5-5.1); Alkaline Phosphatase 66 U/L (38-126); Anion Gap 5 mmol/L (8-16); Aspartate Amino Transferase 13 U/L (17-59); Bilirubin,Total 0.6 mg/dL (0.2-1.3); Blood Urea Nitrogen 26 mg/dL (9-20); Calcium 8.7 mg/dL (8.4-10.2); Carbon Dioxide 29 mmol/L (22-30); Chloride 102 mmol/L (98-107); Estimated CRCL calculation 54 ml/min; Estimated Glomerular Filt Rate 56; Glucose 117 mg/dL (65-110); Partial Thromboplastin Time 37.7 SECONDS (22.3-36.8); Potassium 3.8 mmol/L (3.4-5.0); Sodium 136 mmol/L (137-145)
[2022-11-05 00:18] LABS: NT Pro B Type Natriuretic Pept 404 pg/mL (19.9-100); Troponin I < 0.012 ng/mL (0.000-0.034)
[2022-11-05] MEDS: SODIUM CHLORIDE 0.9% IV 1,000 ML 999 ML IV CONT ×2 (00:27→01:37)
[2022-11-05 00:40] VITALS: BP 139/57; PULSE 61; RESP 16; O2SAT 96
[2022-11-05 01:31] LABS: Influenza A QL RT-PCR Negative (Negative); Influenza B QL RT-PCR Negative (Negative); SARS-CoV-2 RNA PCR Negative (Negative)
[2022-11-05 01:37] LABS: Appearance Urine Clear (Clear); Bilirubin Urine 1+ (Negative); Blood Urine Negative (Negative); Color Urine Dark Yellow (Yellow); Glucose Urine UA Negative (Negative); Ketones Urine Trace mg/dL (Negative); Leukocyte Esterase Ur Negative LEU/UL (Negative); Nitrate Urine Negative (Negative); Protein Urine Negative (Negative); Specific Grav Ur 1.032 (1.001-1.035)
[2022-11-05] MEDS: FAMOTIDINE 20 MG TABLET PO (01:37)
[2022-11-05 02:02] LABS: Add Urine Microscopic? NO
[2022-11-05 02:44] VITALS: BP 117/55; PULSE 60; RESP 16; O2SAT 94
[2022-11-05 03:09] VITALS: BP 153/59; BP 156/65; PULSE 60; PULSE 62
[2022-11-05 03:10] VITALS: BP 165/72; PULSE 70
[2022-11-05 03:40] LABS: Troponin I < 0.012 ng/mL (0.000-0.034)
[2022-11-05 04:25] VITALS: BP 154/75; PULSE 62; RESP 14; O2SAT 94
== END 2022-11-05 04:27 | disposition home or self-care (01) ==
PROVIDERS: Emergency Provider Emergency Medicine
DX: R53.1 Weakness (principal); E86.0 Dehydration; Z20.822 Contact with and (suspected) exposure to COVID-19; I69.354 Hemiplegia and hemiparesis following cerebral infarction affecting left non-dominant side; I10 Essential (primary) hypertension; Z90.79 Acquired absence of other genital organ(s); F17.200 Nicotine dependence, unspecified, uncomplicated
CPT/HCPCS: 36415; 71045; 80053; 81003; 83880; 84484; 85025; 85610; 85730; 87636; 93005; 96361; 96365; 99284; A9270; J0131; J7030

== ENCOUNTER 2022-12-03 23:33 | Emergency (ER) | payer MEDICAID, SELFPAY ==
[2022-12-03 23:40] VITALS: BP 176/66; PULSE 48; RESP 16; TEMP 36.6; O2SAT 99
[2022-12-03 23:44] VITALS: PULSE 46; RESP 15; O2SAT 98
[2022-12-03 23:45] VITALS: PULSE 46; RESP 15; O2SAT 98
--- NOTE | 2022-12-03 23:51 | ECG_ITS ---
Measurements Intervals [place] Rate: 46 P: 47 GA: 172 QRS: -75 QRSD: 166 T: 18 QT: 476 QTc: 417 Interpretive Statements SINUS BRADYCARDIA RIGHT BUNDLE BRANCH BLOCK [120+ ms QRS DURATION, UPRIGHT V1, 40+ ms S IN I/aVL/V4/V5/V6] LEFT ANTERIOR FASCICULAR BLOCK [QRS AXIS <= -45, QR IN I, RS IN II] MINIMAL VOLTAGE CRITERIA FOR LVH, CONSIDER NORMAL VARIANT [MEETS CRITERIA IN ONE OF: R(aVL), S(V1), R(V5), R(V5/V6)+S(V1)] COMPARED TO ECG 11/05/2022 00:37:42 NO SIGNIFICANT CHANGES Electronically Signed On 12-04-2022 9:41:13 CDT by Campbell Rodriguez M.D.
[2022-12-04] VITALS (34 sets, daily range): BP systolic 118–194; BP diastolic 40–118; PULSE 44–52; RESP 11–23; O2SAT 95–100
--- NOTE | 2022-12-04 00:46 | PC.NURSE ---
Son would like to be notified with updates of patient- [facility] [phone].
[2022-12-04 01:46] LABS: Basophils Percent Auto 0.7 % (0.2-1.2); Eosinophils Absolute Auto 0.2 K/mm3 (0-0.3); Eosinophils Percent Auto 3.3 % (0-4.4); Hematocrit 37.4 % (42.0-52.0); Hemoglobin 12.4 g/dL (14.0-18.0); Immature Granulocyte Absolute 0.02 K/mm3 (0.00-0.031); Immature Granulocyte Percent A 0.3 % (0-0.5); Lymphocytes Absolute Auto 1.47 K/mm3 (0.9-3.2); Lymphocytes Percent Auto 24.3 % (18.3-44.2); Mean Corpuscular HGB Conc 33.2 g/dl (32-36); Mean Corpuscular Hemoglobin 30.2 pg (26-34); Mean Corpuscular Volume 91.2 fl (80-100); Mean Platelet Volume 10.4 fl (7.4-10.4); Monocytes Absolute Auto 0.6 K/mm3 (0.1-0.6); Monocytes Percent Auto 9.2 % (2.6-8.5); Neutrophils Absolute Auto 3.8 K/mm3 (1.3-6.7); Neutrophils Percent Auto 62.2 % (45.5-73.1); Platelet Count Result 182 k/mm3 (150-375); Red Cell Distribution Width 14.3 % (11.5-14.5); White Blood Count 6.1 K/mm3 (4.5-10.0)
[2022-12-04 01:47] LABS: Appearance Urine Clear (Clear); Bilirubin Urine Negative (Negative); Blood Urine Negative (Negative); Color Urine Yellow (Yellow); Glucose Urine UA Negative (Negative); Ketones Urine Negative (Negative); Leukocyte Esterase Ur Negative LEU/UL (Negative); Nitrate Urine Negative (Negative); Protein Urine Negative (Negative); Specific Grav Ur 1.023 (1.001-1.035)
[2022-12-04 01:53] LABS: Add Urine Microscopic? NO
[2022-12-04 02:02] LABS: Magnesium 1.9 mg/dL (1.6-2.3)
[2022-12-04 02:03] LABS: Alanine Aminotransferase 10 U/L (6-50); Albumin Level 3.6 g/dL (3.5-5.1); Alkaline Phosphatase 56 U/L (38-126); Anion Gap 4 mmol/L (8-16); Aspartate Amino Transferase 15 U/L (17-59); Bilirubin,Total 0.4 mg/dL (0.2-1.3); Blood Urea Nitrogen 14 mg/dL (9-20); Calcium 8.6 mg/dL (8.4-10.2); Carbon Dioxide 29 mmol/L (22-30); Chloride 105 mmol/L (98-107); Estimated Glomerular Filt Rate > 60; Glucose 83 mg/dL (65-110); Potassium 3.6 mmol/L (3.4-5.0); Sodium 138 mmol/L (137-145)
[2022-12-04 02:12] LABS: NT Pro B Type Natriuretic Pept 485 pg/mL (19.9-100)
[2022-12-04 02:14] LABS: Troponin I < 0.012 ng/mL (0.000-0.034)
--- NOTE | 2022-12-04 03:43 | ED.GENADULT ---
HPI - General Adult General Chief complaint: Recheck/Abnormal Lab/Rx Stated complaint: headache with high blood pressure Time Seen by Provider: 12/04/22 01:03 History of Present Illness HPI narrative: Patient is a 62-year-old gentleman who presents the emergency department with chief complaint of bradycardia. Patient reports that he has history of hypertension and is currently taking 50 mg of metoprolol twice daily but reports that he was at one time on just 25 mg but urgent care had increased him the patient currently does not have an active primary care doctor has been going monthly to urgent care to get refills of his medications. The patient denies chest pain denies syncope denies lightheadedness the patient does report that when he is taking the medication for his blood pressure that he does have problems with erectile dysfunction Related Data Home Medications Medication Instructions Recorded Confirmed metoprolol succinate 50 mg mg PO 11/04/22 tablet,extended release 24 hr tamsulosin 0.4 mg capsule mg PO 11/04/22 Allergies Allergy/AdvReac Type Severity Reaction Status Date / Time iohexol Allergy Severe Anaphylaxis Verified 12/03/22 23:59 [From contrast - CT, X-RAY] ibuprofen Allergy Mild Other Verified 12/03/22 23:59 Review of Systems Review of Systems: A 10 system review of systems was completed on the patient and is negative except for what is stated in the HPI. Nursing and ancillary documentation was reviewed. [facility] Past Medical History Medical History Hypertension Surgical History Surgical History History of orchiectomy Social History Social History Smoking status: Current every day smoker Alcohol intake: never Substance use: never Substance use type: does not use Spiritual care concerns: No Exam Narrative: GENERAL: Well-appearing, well-nourished, and in no acute distress. HEAD: Normocephalic, atraumatic. EYES: PERRLA and EOMI. ENT: Nares clear, no rhinorrhea or epistaxis. Mucous membranes moist. NECK: Supple. CHEST: Clear to auscultation. No respiratory distress. HEART: Regular rate and rhythm. No murmur heard. Normal peripheral pulses. ABDOMEN: Soft, nontender, nondistended, normal active bowel sounds. EXTREMITIES: Normal range of motion. No edema. SKIN: Warm, dry, no rash. NEURO: No focal deficits. Alert and oriented x3. PSYCH: Normal mood and affect. Course Course Emergency Course: Differential diagnosis includes electrolyte abnormality, renal failure, beta-nathaniel side effect. Laboratory studies were obtained which showed a normal CBC electrolytes did not show any acute abnormalities BNP was slightly elevated at 485 troponin was less than 0.012 urinalysis showed no evidence of urinary tract infection EKG showed sinus bradycardia with a rate of 46 the patient's last 2 EKGs showed a rate of 51 and in the low 50s The patient's beta-nathaniel will be reduced to 25 mg twice daily instead of 50 mg and the patient will be referred to primary care Vital Signs Vital signs: Vital Signs Temperature 36.6 C 12/03/22 23:40 Pulse Rate 48 L 12/03/22 23:40 Respiratory Rate 16 12/03/22 23:40 Blood Pressure 176/66 H 12/03/22 23:40 Pulse Oximetry 99 12/03/22 23:40 Oxygen Delivery Room Air 12/03/22 23:40 Temperature 36.6 C 12/03/22 23:40 Pulse Rate 49 L 12/04/22 02:15 Respiratory Rate 15 12/04/22 02:15 Blood Pressure 122/47 L 12/04/22 02:01 Pulse Oximetry 99 12/04/22 02:15 Oxygen Delivery Room Air 12/03/22 23:40 Medical Decision Making Vital Signs Vital Signs: Vital Signs Temperature 36.6 C 12/03/22 23:40 Pulse Rate 48 L 12/03/22 23:40 Respiratory Rate 16 12/03/22 23:40 Blood Pressure 176/66 H 12/03/22 23:40 Pulse Oximet
== END 2022-12-04 04:11 | disposition home or self-care (01) ==
PROVIDERS: Emergency Provider Emergency Medicine
DX: R00.1 Bradycardia, unspecified (principal); I10 Essential (primary) hypertension; F17.200 Nicotine dependence, unspecified, uncomplicated; Z90.79 Acquired absence of other genital organ(s); I45.2 Bifascicular block
CPT/HCPCS: 36415; 80053; 81003; 83735; 83880; 84484; 85025; 93005; 99284

== ENCOUNTER 2024-02-08 05:15 | Inpatient (IN) | payer MEDICARE, MEDICAID, SELFPAY ==
[2024-02-08] VITALS (28 sets, daily range): BP systolic 120–198; BP diastolic 58–90; PULSE 55–101; RESP 12–23; TEMP 36.3–36.7; O2SAT 90–100; BMI 23.7; BMI 23.4
--- NOTE | 2024-02-08 | ECHO_ITS ---
Patient Info Name: Raulito Baig Age: 64 years : 1960 Gender: Male Ht: 71 in Wt: 167 lbs BSA: 1.95 m2 HR: 66 bpm BP: 192 / 77 mmHg Heart Rhythm: Sinus Rhythm Technical Quality: Fair Exam Date: 02/08/2024 5:03 PM Exam Location: Echo Lab Patient Status: Inpatient Admit Date: 02/08/2024 Staff Ordering Physician: Campbell Rodriguez MD (theresa/linh) Parking Lot Signaler: Martin Cortes RDCS Attending Provider: Kameron Cook MD Referring Physician: Michael MORALES; Exam Type: CA echo dop color flow w con Study Info Indications - - chf Complete two-dimensional, color flow and Doppler transthoracic echocardiogram is performed with contrast to opacify the left ventricle and to improve the deliniation of the left ventricle endocardial borders. Contrast/Agitated Saline Contrast/Ag. Saline: Definity Amount: 4.00 ml Existing IV Access: Yes Summary 1. Concentric left ventricular hypertrophy with good systolic function and grade 2 diastolic noncompliance. 2. Left atrial dilation. 3. Mild to moderate mitral regurgitation. 4. Severe aortic valve stenosis valve area 0.7 cm2, mean gradient 43. 5. Mild aortic regurgitation. Left Ventricle Left ventricular chamber dimension is normal. Left ventricular systolic function is normal, estimated at 65-70%. The left ventricular diastolic function is grade II diastolic dysfunction. Right Ventricle Right ventricular chamber dimension is normal. Left Atria Left atrial chamber dimension is moderately enlarged. Right Atria Right atrial chamber dimension is normal. Aortic Valve The aortic valve is trileaflet. There is moderate aortic valve sclerosis. There is severe aortic valve stenosis with a peak velocity of 422.88 cm/s, mean gradient of 43 mmHg, and aortic valve area of 1.17 cm2. There is mild aortic valve regurgitation. Pulmonic Valve The pulmonic valve is normal. Mitral Valve The mitral valve has normal leaflets. There is mild to moderate mitral valve regurgitation. The mitral valve annulus is moderately calcified. Tricuspid Valve The tricuspid valve leaflets are normal. There is mild tricuspid valve regurgitation. Pericardium/Pleural The pericardium appears normal. Aorta The aortic root size at the sinus of Valsalva is normal. Left Ventricular Outflow Tract Name Value Normal LVOT 2D LVOT Diameter 2.24 cm LVOT Doppler LVOT Peak Gradient 5 mmHg LVOT Mean Gradient 3 mmHg LVOT VTI 29.47 cm LVOT VTI/AV VTI Ratio 0.30 LVOT Stroke Volume 116.31 ml LVOT CO 6.72 l/min LVOT CI 3.44 L/min/m2 Pulmonic Valve Name Value Normal PV Doppler PV Peak Gradient 4 mmHg Mitral Valve
--- NOTE | ~2024-02-08 | XR_ITS ---
Portable chest x-ray Comparison: 11/04/2022 Clinical History: Dyspnea Findings: There is central congestive change with mixed probable mild alveolar and interstitial pulm onary edema. No pleural effusion. Cardiomediastinal silhouette is stable. Bones and soft tissues are unremarkable. Impression: Mild mixed alveolar and interstitial pulmonary edema. Correlate clinically for atypical infection. Reviewed, dictated and finalized at [facility]. Impression: Mild mixed alveolar and interstitial pulmonary edema. Correlate clinically for atypical infection.
--- NOTE | ~2024-02-08 | CT_ITS ---
Non-contrast CT scan of the Abdomen and Pelvis Clinical indication: Abdominal pain Technique: 2.5 mm axial scans were obtained through the abdomen and pelvis without intravenous or or al contrast. Dose reduction technique was used on this scan by utilizing automated exposure control a nd iterative reconstruction technique. The dose-length product (DLP) was 474.73 mGy-cm. COMPARISON: 02/07/2021 Findings: Images through the lung bases reveal small bilateral pleural effusions with patchy bibasil ar airspace disease, likely representing atelectasis/pulmonary edema.. There is no evidence of renal or ureteral calculi. The kidneys and the ureters are nondilated. The liver, spleen, and pancreas appear normal. Calcified gallstones are present. Bilateral low-densit y adrenal nodules, right larger than left, are similar to prior exam, most compatible with adenomas. There are atherosclerotic calcifications of the aorta. There is no evidence of bowel obstruction. There is prominent stool at the rectum and in the large dirk wel. Images through the pelvis were performed. There is no evidence of ascites or lymphadenopathy. Urinary bladder unremarkable. No pelvic mass seen. There is partially visualized subcutaneous soft tissue ed ofe at the anterior lower pelvis, probably extending to the scrotum. Impression: Small pleural effusions with mild bibasilar alveolar and interstitial pulmonary edema/atelectasis. Fecal impaction/constipation. Cholelithiasis. Bilateral adrenal adenomas. Low pelvic/scrotal subcutaneous edema, partially imaged. Reviewed, dictated and finalized at [facility]. Impression: Small pleural effusions with mild bibasilar alveolar and interstitial pulmonary edema/atelectasis. Fecal impaction/constipation. Cholelithiasis. Bilateral adrenal adenomas. Low pelvic/scrotal subcutaneous edema, partially imaged.
--- NOTE | 2024-02-08 05:21 | ECG_ITS ---
Test Date: 2024-02-08 05:21:27 Measurements Intervals [place] Rate: 103 P: 48 ID: 160 QRS: -80 QRSD: 158 T: 80 QT: 370 QTc: 486 Interpretive Statements SINUS TACHYCARDIA LEFT ATRIAL ENLARGEMENT [-0.15mV P-WAVE IN V1/V2] RIGHT BUNDLE BRANCH BLOCK [120+ ms QRS DURATION, UPRIGHT V1, 40+ ms S IN I/aVL/V4/V5/V6] LEFT ANTERIOR FASCICULAR BLOCK [QRS AXIS <= -45, QR IN I, RS IN II] LEFT VENTRICULAR HYPERTROPHY AND ST-T CHANGE [VOLTAGE CRITERIA PLUS ST/T ABNORMALITY] ABNORMAL ECG No previous ECG available for comparison Electronically Signed On 02-09-2024 07:09:14 CDT by Silvano Pennington M.D.
--- NOTE | 2024-02-08 05:29 | ED.GENADULT ---
HPI - General Adult General Chief complaint: Chest Pain <Roque Sneed MD - Last Filed: 02/08/24 19:38> Stated complaint: CP AND DIFFICULTY IN BREATHING <Roque Sneed MD - Last Filed: 02/08/24 19:38> Time Seen by Provider: 02/08/24 05:23 <Roque Sneed MD - Last Filed: 02/08/24 19:38> History of Present Illness HPI narrative: Patient is 64-year-old gentleman prior history of hypertension presents emergency department with chief complaint of chest pain and shortness of breath. The patient reports this evening he started having severe shortness of breath and EMS was called. Patient does found to be and respiratory distress was placed on CPAP in the field of there having a difficult time maintaining saturations with that. The patient has no prior history of COPD or respiratory disease <Roque Sneed MD - Last Filed: 02/08/24 19:38> Related Data Home medications: Home Medications Medication Instructions Recorded Confirmed metoprolol succinate 50 mg mg PO 11/04/22 tablet,extended release 24 hr tamsulosin 0.4 mg capsule mg PO 11/04/22 buprenorphine 8 mg-naloxone 2 mg 1 film buccal DAILY 02/08/24 02/08/24 sublingual film (Suboxone) <Roque Sneed MD - Last Filed: 02/08/24 19:38> Allergies/adverse reactions: Allergies Allergy/AdvReac Type Severity Reaction Status Date / Time iohexol Allergy Severe Anaphylaxis Verified 12/03/22 23:59 [From contrast - CT, X-RAY] ibuprofen Allergy Mild Other Verified 12/03/22 23:59 <Roque Sneed MD - Last Filed: 02/08/24 19:38> Review of Systems Review of Systems: A 10 system review of systems was completed on the patient and is negative except for what is stated in the HPI. Nursing and ancillary documentation was reviewed. <Roque Sneed MD - Last Filed: 02/08/24 19:38> PMFSH Past Medical History Medical History: Medical History Hypertension <Roque Sneed MD - Last Filed: 02/08/24 19:38> Surgical History Surgical History: Surgical History History of orchiectomy <Roque Sneed MD - Last Filed: 02/08/24 19:38> Social History Social History: Social History Smoking status: Current every day smoker Tobacco type: cigarettes Second hand tobacco smoke exposure: No Alcohol intake: never Substance use: never Substance use type: does not use Do You Feel Safe in your Home?: Yes Lack of Transportation: No Lack of Food: Never True Current Housing: I Have Housing Concerned About Future Housing: No Difficulty Paying Gas/Electric Bills: No Difficulty Paying for Meds: No Currently Unemployed: No Education: Never Attended/Kindergarten Only Difficulty w/ Childcare or Family Care: No Spiritual care concerns: No <Roque Sneed MD - Last Filed: 02/08/24 19:38> Exam Narrative: GENERAL: Well-appearing, well-nourished, and in moderate acute respiratory distress. HEAD: Normocephalic, atraumatic. EYES: PERRLA and EOMI. ENT: Nares clear, no rhinorrhea or epistaxis. Mucous membranes moist. NECK: Supple. CHEST: Clear to auscultation. Moderate respiratory distress. HEART: Tachycardic rate and regular rhythm. No murmur heard. Normal peripheral pulses. ABDOMEN: Soft, nontender, nondistended, normal active bowel sounds. EXTREMITIES: Normal range of motion. No edema. SKIN: Warm, dry, no rash. NEURO: No focal deficits. Alert and oriented x3. PSYCH: Normal mood and affect. <Roque Sneed MD - Last Filed: 02/08/24 19:38> Course Reevaluation(s) Reevaluation #1: 64-year-old male presents emergency department for evaluation of worsening shortness of breath. Patient's symptoms were improved on BiPAP and pa
[2024-02-08 05:49] LABS: Basophils Absolute Auto 0.1 K/mm3 (0.0-0.1); Basophils Percent Auto 0.7 % (0.2-1.2); Eosinophils Absolute Auto 0.6 K/mm3 (0-0.3); Eosinophils Percent Auto 5.9 % (0-4.4); Hematocrit 45.7 % (42.0-52.0); Hemoglobin 14.6 g/dL (14.0-18.0); Immature Granulocyte Absolute 0.02 K/mm3 (0.00-0.031); Immature Granulocyte Percent A 0.2 % (0-0.5); Lymphocytes Absolute Auto 1.41 K/mm3 (0.9-3.2); Lymphocytes Percent Auto 13.6 % (18.3-44.2); Mean Corpuscular HGB Conc 31.9 g/dl (32-36); Mean Corpuscular Hemoglobin 29.9 pg (26-34); Mean Corpuscular Volume 93.5 fl (80-100); Mean Platelet Volume 10.1 fl (7.4-10.4); Monocytes Absolute Auto 0.4 K/mm3 (0.1-0.6); Monocytes Percent Auto 4.1 % (2.6-8.5); Neutrophils Absolute Auto 7.9 K/mm3 (1.3-6.7); Neutrophils Percent Auto 75.5 % (45.5-73.1); Platelet Count Result 240 k/mm3 (150-375); Red Blood Count 4.89 M/mm3 (4.6-6.20); Red Cell Distribution Width 14.3 % (11.5-14.5); White Blood Count 10.4 K/mm3 (4.5-10.0)
[2024-02-08] MEDS: ASPIRIN 81 MG CHEWABLE TABLET 324 MG PO (05:50)
[2024-02-08] MEDS: NITROGLYCERIN OINTMENT 1 INCH DOSE TRANSDERM (05:52)
[2024-02-08 05:57] LABS: Alveolar/Arterial O2 Gradient 235.3 mmHg; Fractional Inspired Oxygen 50 %; HCO3 ABG 24.6 mEq/l (22.0-26.0); Oxygen Content ABG 16.1 %vol (16.0-22.0); PCO2 ABG 49.5 mmHg (35.0-45.0); PO2 ABG 65.5 mmHg (80.0-100.0); PO2 FiO2 Ratio Arterial Blood 1.31 %; Total Hemoglobin 13.1 g/dL (12.0-18.0); pH ABG 7.314 (7.350-7.450)
[2024-02-08 05:58] LABS: Device NON-INVASIVE VENT; Oxyhemoglobin 87.3 % THb (90.0-100.0); Site Drawn RIGHT BRACHIAL
[2024-02-08 05:59] LABS: Non-Invasive Expiratory Pressure 6 CMH2O; Non-Invasive Inspiratory Pressure 13 CMH2O; Non-Invasive Vent Rate 14 /MIN
[2024-02-08 06:00] LABS: Partial Thromboplastin Time 31.5 Seconds (22.3-36.8)
[2024-02-08 06:01] LABS: Alanine Aminotransferase 15 U/L (6-50); Albumin Level 4.5 g/dL (3.5-5.1); Alkaline Phosphatase 75 U/L (38-126); Anion Gap 10 mmol/L (4-12); Aspartate Amino Transferase 24 U/L (17-59); Bilirubin,Total 0.5 mg/dL (0.2-1.3); Blood Urea Nitrogen 23 mg/dL (9-20); Calcium 8.8 mg/dL (8.4-10.2); Carbon Dioxide 26 mmol/L (22-30); Chloride 105 mmol/L (98-107); Estimated CRCL calculation 74 ml/min; Estimated Glomerular Filt Rate > 60; Glucose 135 mg/dL (65-110); Lipase 61 U/L (23-300); Potassium 3.6 mmol/L (3.4-5.0); Sodium 141 mmol/L (137-145)
[2024-02-08 06:02] LABS: Lactic Acid Reflex 1.3 mmol/L (0.7-2.0)
[2024-02-08 06:12] LABS: Troponin I 0.031 ng/mL (0.000-0.034)
[2024-02-08 06:29] LABS: Influenza A QL RT-PCR Negative (Negative); Influenza B QL RT-PCR Negative (Negative); RSV RNA, RT-PCR Negative (Negative); SARS-CoV-2 RNA PCR Negative (Negative)
[2024-02-08 06:47] LABS: Procalcitonin 0.1 ng/mL
[2024-02-08 07:02] LABS: Lipase 60 U/L (23-300)
[2024-02-08 07:06] LABS: NT Pro B Type Natriuretic Pept 827 pg/mL (19.9-100)
[2024-02-08] MEDS: FUROSEMIDE INJ 40 MG/4 ML VIAL IV PUSH ×2 (08:50→17:49)
[2024-02-08 09:13] LABS: Troponin I 0.868 ng/mL (0.000-0.034)
--- NOTE | 2024-02-08 12:49 | PC.NURSE ---
Patient arrived to the floor via stretcher from the emergency department. Respiratory therapist at bedside as patient is noted to be on BIPAP. Alert and oriented at this time. Foul smelling, clothing filthy dirty and saturated in urine. Discussed with patient plan of care including moving from the stretcher to the bed, removing wet clothing and cleaning up, and placing a saxophone player. Verbalizes understanding. After removing urine saturated pants, removed socks that appeared to be saturated in dry urine and possibly stool. When asked if there are animals living with, the patient answered Yes, I have two small Marcuss dogs . When asked if he stepped in urine, he states Yes probably they use the bathroom all over the place . Patient also smelled heavily of cigarette smoke. States that Yes, I smoke and probably to much . Discussed with patient that he needs a good shower with soap and water when he is a little warmer and feeling better. Patient verbally agreed. Patient denies chest pain at this time, but states he woke up from home feeling very short of breath and had chest pain. Blood pressure is high at this time, (See vital sign flow sheet), systolic in the 190s. There is a small friction rub on right buttock cheek, no drainage noted at this time. Skin cleansed with wet wipes as patient did not want to use soap and water at this time. New saxophone player pads placed on patient. supervisor electronics assembly placed on and functioning and this time. [place] catheter placed on patient. No acute distress noted at this time.
--- NOTE | 2024-02-08 13:32 | PC.NURSE ---
pt unable to remember what medications he is taking. called cousin and regarding meds. cousin did not know medications. also did not know but reported pt lost all meds a few days ago and has not been taking them. called pt's pharmacy [facility]. charted all meds pt has filled from this pharmacy for last year into home medication list. several medications remaining on populated home med list pt unsure if he takes them. [facility] unverified meds for one year. pt did state he was prescribed plavix but stopped taking it because he didn't like it. rn notified of difficulty verifying home medications. v/u.
--- NOTE | 2024-02-08 14:32 | ECG_ITS ---
Test Date: 2024-02-08 14:32:33 Measurements Intervals [place] Rate: 62 P: 55 DC: 161 QRS: -69 QRSD: 154 T: 32 QT: 449 QTc: 459 Interpretive Statements SINUS RHYTHM POSSIBLE LEFT ATRIAL ENLARGEMENT [-0.1mV P WAVE IN V1/V2] RIGHT BUNDLE BRANCH BLOCK [120+ ms QRS DURATION, UPRIGHT V1, 40+ ms S IN I/aVL/V4/V5/V6] LEFT ANTERIOR FASCICULAR BLOCK [QRS AXIS <= -45, QR IN I, RS IN II] POSSIBLE LEFT VENTRICULAR HYPERTROPHY [VOLTAGE CRITERIA PLUS LAE OR QRS WIDENING] No previous ECG available for comparison Electronically Signed On 02-08-2024 17:15:12 CDT by Campbell Rodriguez M.D.
[2024-02-08] MEDS: HEPARIN SOD/D5W 100 UNITS/ML 25,000 UNITS/250 ML BAG 9 UNITS IV CONT (14:41)
[2024-02-08] MEDS: HEPARIN SODIUM 5,000 UNITS/ML VIAL 4000 UNITS IV PUSH ×2 (14:42→22:32)
[2024-02-08 14:47] LABS: Basophils Absolute Auto 0.1 K/mm3 (0.0-0.1); Basophils Percent Auto 0.9 % (0.2-1.2); Eosinophils Absolute Auto 0.2 K/mm3 (0-0.3); Eosinophils Percent Auto 3.7 % (0-4.4); Hematocrit 38.2 % (42.0-52.0); Hemoglobin 11.8 g/dL (14.0-18.0); Immature Granulocyte Absolute 0.03 K/mm3 (0.00-0.031); Immature Granulocyte Percent A 0.5 % (0-0.5); Lymphocytes Absolute Auto 0.76 K/mm3 (0.9-3.2); Lymphocytes Percent Auto 11.6 % (18.3-44.2); Mean Corpuscular HGB Conc 30.9 g/dl (32-36); Mean Corpuscular Hemoglobin 29.1 pg (26-34); Mean Corpuscular Volume 94.1 fl (80-100); Mean Platelet Volume 10.1 fl (7.4-10.4); Monocytes Absolute Auto 0.5 K/mm3 (0.1-0.6); Monocytes Percent Auto 6.9 % (2.6-8.5); Neutrophils Percent Auto 76.4 % (45.5-73.1); Platelet Count Result 177 k/mm3 (150-375); Red Blood Count 4.06 M/mm3 (4.6-6.20); Red Cell Distribution Width 14.1 % (11.5-14.5); White Blood Count 6.6 K/mm3 (4.5-10.0)
[2024-02-08 14:54] LABS: Prothrombin Time 13.7 Seconds (11.1-14.7)
[2024-02-08 14:55] LABS: Partial Thromboplastin Time 32.9 Seconds (22.3-36.8)
[2024-02-08 15:11] LABS: Base Excess ABG 1.4 mEq/l (+/-2.0); Fractional Inspired Oxygen 30 %; HCO3 ABG 26.4 mEq/l (22.0-26.0); Oxygen Content ABG 15.7 %vol (16.0-22.0); Oxygen Saturation ABG 91.4 % (95.0-100.0); Oxyhemoglobin 89.5 % THb (90.0-100.0); PCO2 ABG 43.3 mmHg (35.0-45.0); PO2 FiO2 Ratio Arterial Blood 2.03 %; Total Hemoglobin 12.5 g/dL (12.0-18.0); pH ABG 7.403 (7.350-7.450)
[2024-02-08 15:12] LABS: Device NON-INVASIVE VENT; Modified Allen's Test Pass; Non-Invasive Expiratory Pressure 6 CMH2O; Non-Invasive Inspiratory Pressure 13 CMH2O; Non-Invasive Vent Rate 14 /MIN; Site Drawn RIGHT RADIAL
--- NOTE | 2024-02-08 15:46 | PC.NURSE ---
Request to get up and go to the bathroom for a bowel movement. This RN explained to the patient that because he just came off of the BIPAP and placed onto a nasal cannula and that because his troponin levels are elevated and we are awaiting cardiology consult I would prefer him use a bed [place]. He states I just can't do it . When asked why, he states I just think it is gross . This RN explained to him that is overall safety was a priority and make sure he did not suffer from any respiratory distress, at best we could try a bedside commode. He states I will just wait a little while . Encouraged to try so that he doesn't suffer, but again he stated I will wait . Patient then request medication for anxiety. States he smokes THC daily to help reduce his anxiety and that he is currently taking Suboxone daily. When asked why he is on Suboxone, Former heroine user, last used two years ago .
[2024-02-08] MEDS: LORazepam (*CRX) 0.5 MG TABLET PO (15:56)
[2024-02-08] MEDS: METOPROLOL TARTRATE 12.5 MG TABLET PO ×2 (15:56→20:42)
--- NOTE | 2024-02-08 16:41 | PM.CNCAR ---
Assessment and Plan Assessment and plan (1) Acute CHF (congestive heart failure): Code(s): I50.9 - Heart failure, unspecified Status: Acute Assessment and Plan: Will give an additional dose of IV Lasix this afternoon. Please monitor strict I/Os. His examination is concerning for severe -- echocardiogram ordered and pending. (2) NSTEMI (non-ST elevated myocardial infarction): Code(s): I21.4 - Non-ST elevation (NSTEMI) myocardial infarction Status: Acute Assessment and Plan: Continue to trend troponins until peak. Continue Heparin drip for now. Unclear if this was an acute coronary event. Troponin elevation could also be from acute hypoxic respiratory failure, CHF, severe aortic stenosis. For now, will continue to trend troponins until peak, continue with Heparn drip. Start ASA and high intensity statin. Continue Metoprolol. Obtain transthoracic echocardiogram. (3) Acute hypoxic respiratory failure: Code(s): J96.01 - Acute respiratory failure with hypoxia Status: Acute Assessment and Plan: Wean off oxygen as tolerated. (4) Aortic stenosis: Code(s): I35.0 - Nonrheumatic aortic (valve) stenosis Status: Acute Assessment and Plan: His examination is concerning for severe based on the intensity of his murmur -- echocardiogram ordered and pending. (5) Hypertension: Code(s): I10 - Essential (primary) hypertension Status: Acute Assessment and Plan: Systolic blood pressures are in the 190s currently. Continue Metoprolol. Will start low dose Losartan. Avoid hypotension given concern for severe . (6) History of stroke: Code(s): Z86.73 - Personal history of transient ischemic attack (TIA), and cerebral infarction without residual deficits Status: Acute Assessment and Plan: ASA and high intensity statin History of Present Illness History of Present Illness Consult date/time: 02/08/24 16:41 Requesting physician: Kameron Cook MD Consult reason: chest pain Reason For Visit: Chest pain pulmonary edema Narrative: This is a 64 year old male with history of CVA, hypertension, history of past heroin use currently on suboxone, history of scrotal cellulitis, moderate per TTE in 2020 who presented with acute shortness of breath that occurred this morning around 4AM. Patient states he was awake and had to go to the bathroom, when all of a sudden he got really short of breath, had chest tightness, starting sweating. He was placed on BIPAP in the ED with improvement in his respiratory status. Initial troponin negative. Second troponin positive at 0.868, with third troponin level now at 2.460. NT pro BNP elevated at 827. CXR with mild mixed alveolar and interstitial pulmonary edema. CT A/P shows small pleural effusions with mild bibasilar alveolar and interstitial pulmonary edema / atelectasis; fecal impaction / constipation; low pelvic / scrotal subcutaneous edema. EKG showed sinus rhythm with RBBB; cannot compare to his previous ECGs. He was given a dose of IV Lasix. At the time of my evaluation, patient states that he feels better. No longer having any shortness of breath. Was transitioned off the BIPAP and onto the nasal cannula. Patient states he didn't really have chest pain, it was more of a mild chest tightness. His shortness of breath was the main issue. Hasn't taken his medications, except his Suboxone, for probably the past 10 days. Quit doing heroin about 2 years ago or so. No IV drug use. He snorted it. His stroke was about 10-14 years ago. He reports having a cardiac catheterization done at the [facility] by the Dr. Hanson and it showed no blockages. Review of Systems Review of Systems: All systems reviewed & are unremarkable except as noted in HPI and below (HPI) [facility] Past Medical History Medical History Hypertension Surgical History Surgical Histo
--- NOTE | 2024-02-08 16:54 | PC.NURSE ---
ABGs collected while on BIPAP. Patient placed on 3L/NC and tolerating well at this time. Denies shortness of breath at this time.
[2024-02-08] MEDS: PERFLUTREN LIPID MICROSPHERES 1.5 ML VIAL DILUTED TO 10 ML TOTAL VOLUME IV PUSH (17:25)
[2024-02-08] MEDS: ATORVASTATIN 40 MG TABLET 80 MG PO (17:49)
[2024-02-08] MEDS: LOSARTAN POTASSIUM 25 MG TABLET PO (17:49)
--- NOTE | 2024-02-08 18:53 | PM.IMHP ---
H&P: HPI History of Present Illness Date/Time: 02/08/24 18:53 Chief Complaint: Shortness of breath Narrative: Patient is a 64 year old male with history of CVA, hypertension, aortic valve stenosis per TTE 2020,past heroin use and currently on suboxone. Patient presented to the ER with acute onset SOB,that started this morning when he was woke up to use the bathroom. Patient reports he suddenly got really short of breath, accompanied by chest tightness, and sweating. He was initially placed on BIPAP in the ER, which has been able to be weaned off with improvement in his respiratory status, currently on 3L/NC. Initial troponin negative. Subsequent troponin positive at 0.868 >> and 2.46. NT pro BNP elevated at 827. CXR with mild mixed alveolar and interstitial pulmonary edema. CT A/P showed small pleural effusions with mild bibasilar alveolar and interstitial pulmonary edema / atelectasis; fecal impaction / constipation; low pelvic / scrotal subcutaneous edema. EKG showed sinus rhythm with RBBB; No previous EKG for comparison. Patient was given a dose of IV Lasix in the ER, and reports much improvement in his symptoms. During my exam, patient states he just couldn't breathe after he woke up and felt like he was suffocating. Reports chest tightness but not really pain, and denies any previous episodes. Patient admits to not taking his medications for about 2 weeks now, except for Suboxone. Patient also has a history of stroke about 10years ago per his statement, causing some residual dysarthria. He also reports a cardiac catheterization done in [place] that was ok per patient. Patient reports he's feeling much better now and can tolerate some activity but still gets SOB with exertion. Review of Systems Review of Systems: All systems reviewed & are unremarkable except as noted in HPI and below PMFSH Past Medical History Medical History Hypertension Surgical History Surgical History History of orchiectomy Social History Social History Smoking status: Current every day smoker Tobacco type: cigarettes Second hand tobacco smoke exposure: No Alcohol intake: never Substance use: never Substance use type: does not use Do You Feel Safe in your Home?: Yes Lack of Transportation: No Lack of Food: Never True Current Housing: I Have Housing Concerned About Future Housing: No Difficulty Paying Gas/Electric Bills: No Difficulty Paying for Meds: No Currently Unemployed: No Education: Never Attended/Kindergarten Only Difficulty w/ Childcare or Family Care: No Spiritual care concerns: No Meds Home Medications and Allergies Home Medications Medication Instructions Recorded Confirmed Type Saccharomyces boulardii 250 mg 250 mg PO BID 12 days #24 caps 02/09/21 Rx capsule (Florastor) amlodipine 10 mg tablet 10 mg PO DAILY #30 tabs 02/09/21 02/08/24 Rx carvedilol 25 mg tablet 25 mg PO BID #60 tabs 02/09/21 Rx clopidogrel 75 mg tablet 75 mg PO DAILY #30 tabs 02/09/21 11/04/22 Rx lisinopril 20 mg tablet 20 mg PO DAILY #30 tabs 02/09/21 11/04/22 Rx pantoprazole 40 mg tablet,delayed 40 mg PO DAILY #30 tabs 02/09/21 02/08/24 Rx release metoprolol succinate 50 mg mg PO 11/04/22 History tablet,extended release 24 hr tamsulosin 0.4 mg capsule mg PO 11/04/22 History buprenorphine 8 mg-naloxone 2 mg 1 film buccal DAILY 02/08/24 02/08/24 History sublingual film (Suboxone) Allergies Allergy/AdvReac Type Severity Reaction Status Date / Time iohexol Allergy Severe Anaphylaxis Verified 12/03/22 23:59 [From contrast - CT, X-RAY] ibuprofen Allergy Mild Other Verified 12/03/22 23:59 Vital Signs Vital Signs - 24 hr 02/08/24 05:17 02/08/24 05:30 02/08/24 05:30 Temperature 98.0 F Pulse Rate 100 101 H Respiratory Rate 22 H Blood Pr
[2024-02-08] MEDS: polyethylene glycoL 3350 17 GM POWD.PACK PO (20:42)
[2024-02-08 20:52] LABS: Partial Thromboplastin Time 46.6 Seconds (22.3-36.8)
[2024-02-09] VITALS (21 sets, daily range): BP systolic 147–166; BP diastolic 59–95; PULSE 55–74; RESP 12–19; TEMP 36.3–37.1; O2SAT 94–99
[2024-02-09 05:02] LABS: Basophils Absolute Auto 0.1 K/mm3 (0.0-0.1); Basophils Percent Auto 1.1 % (0.2-1.2); Eosinophils Absolute Auto 0.4 K/mm3 (0-0.3); Eosinophils Percent Auto 5.5 % (0-4.4); Hematocrit 39.4 % (42.0-52.0); Hemoglobin 12.4 g/dL (14.0-18.0); Immature Granulocyte Absolute 0.01 K/mm3 (0.00-0.031); Immature Granulocyte Percent A 0.2 % (0-0.5); Lymphocytes Percent Auto 17.2 % (18.3-44.2); Mean Corpuscular HGB Conc 31.5 g/dl (32-36); Mean Corpuscular Hemoglobin 29.1 pg (26-34); Mean Corpuscular Volume 92.5 fl (80-100); Mean Platelet Volume 10.1 fl (7.4-10.4); Monocytes Absolute Auto 0.5 K/mm3 (0.1-0.6); Neutrophils Absolute Auto 4.3 K/mm3 (1.3-6.7); Platelet Count Result 188 k/mm3 (150-375); Red Blood Count 4.26 M/mm3 (4.6-6.20); Red Cell Distribution Width 14.2 % (11.5-14.5); White Blood Count 6.4 K/mm3 (4.5-10.0)
[2024-02-09 05:13] LABS: Partial Thromboplastin Time 72.2 Seconds (22.3-36.8)
--- NOTE | 2024-02-09 08:18 | IVDEFINITY ---
Prior to administration of IV Definity the patient was educated on the risks and benefits of the imaging enhancing agent including potential adverse side effects. The patient verbalized understanding. Allergies were verified. No exclusion criteria were identified and at least one of the following inclusion criteria were met: 1) physician request, 2) patient technically difficult to image (per the [place] [employer] guidelines of two or more segments not discernable within the apical view), or 3) questionable left ventricular function. ?
[2024-02-09] MEDS: FUROSEMIDE INJ 40 MG/4 ML VIAL IV PUSH (08:51)
[2024-02-09] MEDS: LOSARTAN POTASSIUM 25 MG TABLET PO (08:51)
[2024-02-09] MEDS: ASPIRIN 81 MG ENTERIC TABLET PO (08:51)
[2024-02-09] MEDS: ATORVASTATIN 40 MG TABLET 80 MG PO (08:51)
[2024-02-09] MEDS: METOPROLOL TARTRATE 12.5 MG TABLET PO (08:51)
--- NOTE | 2024-02-09 11:05 | PCRCNOTE ---
ABG attempted by 3 different therapists and not obtained. R.N. notified; R.N. notified the ordering
[2024-02-09 11:26] LABS: Alanine Aminotransferase 12 U/L (6-50); Albumin Level 3.9 g/dL (3.5-5.1); Alkaline Phosphatase 75 U/L (38-126); Anion Gap 9 mmol/L (4-12); Aspartate Amino Transferase 23 U/L (17-59); Bilirubin,Total 0.6 mg/dL (0.2-1.3); Blood Urea Nitrogen 20 mg/dL (9-20); Carbon Dioxide 30 mmol/L (22-30); Chloride 99 mmol/L (98-107); Estimated CRCL calculation 76 ml/min; Estimated Glomerular Filt Rate > 60; Glucose 104 mg/dL (65-110); Partial Thromboplastin Time 54.4 Seconds (22.3-36.8); Potassium 3.8 mmol/L (3.4-5.0); Sodium 138 mmol/L (137-145)
[2024-02-09] MEDS: HEPARIN SODIUM 5,000 UNITS/ML VIAL 3000 UNITS IV PUSH (11:35)
[2024-02-09] MEDS: ACETAMINOPHEN 325 MG TABLET PO (13:27)
[2024-02-09] MEDS: HEPARIN SOD/D5W 100 UNITS/ML 25,000 UNITS/250 ML BAG 14 UNITS IV CONT (13:27)
--- NOTE | 2024-02-09 14:40 | PM.IMPN ---
Progress Note: A&P Assessment and Plan (1) Acute hypoxemic respiratory failure: Code(s): J96.01 - Acute respiratory failure with hypoxia Status: Acute (2) NSTEMI (non-ST elevated myocardial infarction): Code(s): I21.4 - Non-ST elevation (NSTEMI) myocardial infarction Status: Acute (3) Acute CHF (congestive heart failure): Code(s): I50.9 - Heart failure, unspecified Status: Acute (4) Aortic stenosis: Code(s): I35.0 - Nonrheumatic aortic (valve) stenosis Status: Acute Assessment and Plan: - (5) Pulmonary edema: Code(s): J81.1 - Chronic pulmonary edema Status: Acute (6) Nicotine dependence: Code(s): F17.200 - Nicotine dependence, unspecified, uncomplicated Status: Acute Assessment and Plan: - Encouraged with cessation. - Nicotine patch PRN. (7) Hypertension: Code(s): I10 - Essential (primary) hypertension Status: Acute Assessment and Plan: BP elevated. - Restart coreg. - Started on lisinopril per microfilm equipment inspector. - Avoid hypotension with aortic stenosis. - Adjust meds as needed. (8) History of stroke: Code(s): Z86.73 - Personal history of transient ischemic attack (TIA), and cerebral infarction without residual deficits Status: Acute Assessment and Plan: - Restarted on ASA, clopidogrel and statin. Plan #Acute Respiratory Failure with Hypoxia - Possibly related to CHF exacerbation vs COPD exacerbation vs other. - ABG's on admission noted. - Initially on BIPAP but able to be weaned off, now on PRN 2L/NC supplemental O2. - Continue supplemental O2 to maintain sats > 90 %. # NSTEMI vs Hypoxia - Possibly related to demand ischemia secondary to hypoxemia. - Serial troponins 0.03 >>o.868>>2.46 >> 2.83<<1.760<<1.440respectively. - Currently denies any chest pain or shortness of breath or diaphoresis. - EKG: SR with RBBB. - ECHO ordered and pending. - Given a full dose of ASA and started on ASA, statin ,metoprololand losartan. - Clopidogrel resumed. - Further mgt per microfilm equipment inspector. - Continue tele monitoring. #Severe aortic stenosis #HF -asymptomatically improved after initiation of diuretic, beta-nathaniel and ARB treatment. - Echocardiogram today demonstrates severe LVH with good systolic function and severe aortic valve stenosis with high gradient and valve area of 0.7 cm2. Obviously he requires aortic valve replacement. -Cardiology recommends treating him medically here if he is feeling better with resolution of his dyspnea and he should be able to be discharged in the next 24-48 hours. -He will need to complete his aortic valve workup at [facility] where aortic valve replacement can be carried out. -The importance of this in compliance with the plan was stressed with the patient and the family as survival data for severe aortic stenosis with heart failure is extremely poor without valve replacement. #ECHO 1. Concentric left ventricular hypertrophy with good systolic function and grade 2 diastolic noncompliance. 2. Left atrial dilation. 3. Mild to moderate mitral regurgitation. 4. Severe aortic valve stenosis valve area 0.7 cm2, mean gradient 43. 5. Mild aortic regurgitation. Status: FULL-CODE. Diet: Heart Healthy. PPx: SCD's. Subjective Date/time seen: 02/09/24 14:40 Interval history: Today the patient was resting well in the bed. Denies any chest pain shortness of breath or diaphoresis. Patient reports he underwent catheterization [address] Hans[place] in [place]. He reports of using snorting heroin for long period but stopped 5 years ago. Patient reports of using Suboxone. And asking about from where he gets Suboxone [place] [address] [place] [address] Review of Systems Review of Systems: All systems reviewed & are unremarkable except as noted in HPI and below Exam Narrative: General: Fair appearing, appears older than
--- NOTE | 2024-02-09 15:12 | PM.PNCARD ---
Progress Note: A&P Assessment and Plan (1) Aortic stenosis: Code(s): I35.0 - Nonrheumatic aortic (valve) stenosis Status: Acute Plan This is a 64-year-old man with congestive heart failure and severe aortic valve stenosis. He is asymptomatically improved after initiation of diuretic, beta-nathaniel and ARB treatment. His echocardiogram today demonstrates severe LVH with good systolic function and severe aortic valve stenosis with high gradient and valve area of 0.7 cm2. Obviously he requires aortic valve replacement. Long discussion with the patient in the room I believe he has a very poor understanding of this. His family in the room as a better understanding of this. I recommended treating him medically here if he is feeling better with resolution of his dyspnea he should be able to be discharged in the next 24-48 hours. He will need to complete his aortic valve workup at [facility] where aortic valve replacement can be carried out. The importance of this in compliance with the plan was stressed with the patient and the family as survival data for severe aortic stenosis with heart failure is extremely poor without valve replacement. The patient initially was telling me that he receives his general medical care in [facility] and had planned to go back there for further evaluation and complete his care. On further conversation that was obviously not accurate he has been living in this area for at least 5 or 6 years and has not seen a physician in [place] for more than a decade. 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 Patient has been noncompliant with medical therapy and cardiovascular follow-up. He is feeling much better after she diuresis, initiation of beta-nathaniel and ARB therapy. Reports his dyspnea is markedly improved compared with admission. Exam Const: General: comfortable Other: Somewhat disheveled man in no distress, HENMT: Mouth: Yes moist mucous membranes Other: Very poor oral hygiene Eyes: Sclera: sclerae normal Neck: Neck: supple and no JVD Resp: Effort & Inspection: normal respiratory effort Other: Breath sounds with few scattered rhonchi no rales prolonged expiratory phase Cardio: Rate: regular rate Rhythm: regular rhythm Other: Grade 3/6 high-pitched systolic crescendo decrescendo murmur audible at the base GI: GI Palp: Yes Soft to palpation Auscultation: normal bowel sounds Skin: General skin exam: normal color Neuro: Other: Alert and responsive. Extrem: Other: No significant edema Objective Data Vital Signs Vital Signs: Vital Signs - 24 hr 02/08/24 15:22 02/08/24 15:28 02/08/24 15:56 Temperature 36.6 C Pulse Rate 69 66 Respiratory Rate 20 Blood Pressure 192/77 H Pulse Oximetry 93 100 Oxygen Delivery Nasal Cannula Oxygen Flow Rate 3 Fraction of Inspired Oxygen 32 02/08/24 16:00 02/08/24 17:47 02/08/24 18:00 Temperature Pulse Rate 68 59 L 68 Respiratory Rate Blood Pressure 165/62 H Pulse Oximetry Oxygen Delivery Oxygen Flow Rate Fraction of Inspired Oxygen 02/08/24 19:44 02/08/24 20:42 02/08/24 20:00 Temperature 36.4 C Pulse Rate 62 69 Respiratory Rate 18 Blood Pressure 120/58 L Pulse Oximetry 95 95 Oxygen Delivery Nasal Cannula Oxygen Flow Rate 3 Fraction of Inspired Oxygen 32 02/08/24 23:53 02/08/24 23:00 02/09/24 00:00 Temperature 36.5 C Pulse Rate 57 L 56 L 57 L Respiratory Rate 18 14 18 Blood Pressure 135/63 Pulse Oximetry 98 95 98 Oxygen Delivery BiPAP BiPAP Oxygen Flow Rate Fraction of Inspired Oxygen 32 02/08/24 20:00 02/08/24 22:00 02/09/24 00:00 Temp
[2024-02-09] MEDS: LORazepam (*CRX) 0.5 MG TABLET PO (15:25)
[2024-02-09 18:04] LABS: Partial Thromboplastin Time 68.2 Seconds (22.3-36.8)
[2024-02-10] VITALS (21 sets, daily range): BP systolic 148–175; BP diastolic 56–83; PULSE 55–77; RESP 16–21; TEMP 36.2–36.9; O2SAT 93–99
[2024-02-10 04:51] LABS: Hematocrit 41.1 % (42.0-52.0); Hemoglobin 12.1 g/dL (14.0-18.0); Mean Corpuscular HGB Conc 29.4 g/dl (32-36); Mean Corpuscular Hemoglobin 29.5 pg (26-34); Mean Corpuscular Volume 100.2 fl (80-100); Mean Platelet Volume 10.7 fl (7.4-10.4); Platelet Count Result 181 k/mm3 (150-375); Red Cell Distribution Width 14.1 % (11.5-14.5); White Blood Count 5.3 K/mm3 (4.5-10.0)
[2024-02-10 05:27] LABS: Alanine Aminotransferase 10 U/L (6-50); Albumin Level 3.7 g/dL (3.5-5.1); Alkaline Phosphatase 68 U/L (38-126); Anion Gap 6 mmol/L (4-12); Aspartate Amino Transferase 18 U/L (17-59); Bilirubin,Total 0.8 mg/dL (0.2-1.3); Blood Urea Nitrogen 22 mg/dL (9-20); Calcium 8.8 mg/dL (8.4-10.2); Carbon Dioxide 31 mmol/L (22-30); Chloride 100 mmol/L (98-107); Estimated CRCL calculation 75 ml/min; Estimated Glomerular Filt Rate > 60; Glucose 93 mg/dL (65-110); Potassium 3.8 mmol/L (3.4-5.0); Sodium 137 mmol/L (137-145)
[2024-02-10] MEDS: ATORVASTATIN 40 MG TABLET 80 MG PO (09:11)
[2024-02-10] MEDS: LOSARTAN POTASSIUM 25 MG TABLET PO (09:12)
[2024-02-10] MEDS: METOPROLOL SUCCINATE EXT REL 25 MG TABCR PO (09:12)
[2024-02-10] MEDS: FUROSEMIDE INJ 40 MG/4 ML VIAL IV PUSH (09:12)
[2024-02-10] MEDS: ASPIRIN 81 MG ENTERIC TABLET PO (09:12)
[2024-02-10] MEDS: ACETAMINOPHEN 325 MG TABLET 650 MG PO ×2 (10:20→22:59)
--- NOTE | 2024-02-10 10:48 | PM.PNCARD ---
Progress Note: A&P Assessment and Plan (1) Aortic stenosis: Code(s): I35.0 - Nonrheumatic aortic (valve) stenosis Status: Acute (2) Acute CHF (congestive heart failure): Code(s): I50.9 - Heart failure, unspecified Status: Acute Plan 64-year-old man with severe aortic stenosis symptomatic with CHF. He is symptomatic better with initiation of medical therapy. Today I will transition him to oral furosemide and advanced the dosage of his losartan as he is still rather hypertensive. He should be weaned to room air and then if stable he can be discharged. My partner, Dr. Rodriguez will arrange for outpatient catheterization followed by CT angiography of his thoracic and abdominal aorta to determine if he is a TAVR candidate or not. When he is stable and on room air he can be discharged from this hospital. Silvano Canales MD [facility] Subjective Date/time seen: Date of service: 02/10/24 10:48 Interval history: Follow-up visit in this 64-year-old man with: Severe aortic valve stenosis presenting with congestive heart failure. Patient has been noncompliant with medical therapy and cardiovascular follow-up. He is feeling much better after she diuresis, initiation of beta-nathaniel and ARB therapy. Reports his dyspnea is markedly improved compared with admission. 02/10/2024: Patient reports basically resolution of his dyspnea. Another long conversation with the patient and family in the room regarding need for completion of workup for his aortic valve stenosis which would include catheterization and CT angiogram of his thorax and abdomen to determine if he is a TAVR candidate. This workup will not be completed here at this hospital. Exam Const: General: comfortable and no acute distress Other: Somewhat disheveled man in no distress, HENMT: Mouth: Yes moist mucous membranes Other: Very poor oral hygiene Eyes: General: appearance normal, both eyes and all related structures Sclera: sclerae normal Neck: Neck: supple and no JVD Resp: Effort & Inspection: normal respiratory effort Other: Breath sounds with few scattered rhonchi no rales prolonged expiratory phase Cardio: Rate: regular rate Rhythm: regular rhythm Heart sounds: Murmur heart sound present systolic Other: Grade 3/6 high-pitched systolic crescendo decrescendo murmur audible at the base GI: Auscultation: normal bowel sounds Skin: General skin exam: normal color Neuro: Speech: normal speech Other: Alert and responsive. Extrem: Other: No significant edema Psych: Mental Status: mental status grossly normal Affect: normal affect Objective Data Vital Signs Vital Signs: Vital Signs - 24 hr 02/09/24 11:17 02/09/24 11:15 02/09/24 11:47 Temperature 36.6 C Pulse Rate 64 Respiratory Rate 16 Blood Pressure 166/70 H Pulse Oximetry 98 97 94 Oxygen Delivery Nasal Cannula Nasal Cannula Oxygen Flow Rate 3 2 Fraction of Inspired Oxygen 02/09/24 12:00 02/09/24 12:00 02/09/24 15:33 Temperature 36.8 C Pulse Rate 58 L 64 64 Respiratory Rate 16 16 Blood Pressure 161/59 H Pulse Oximetry 94 95 Oxygen Delivery Nasal Cannula Oxygen Flow Rate 3 Fraction of Inspired Oxygen 32 02/09/24 14:00 02/09/24 16:00 02/09/24 16:00 Temperature Pulse Rate 60 55 L 64 Respiratory Rate 16 Blood Pressure Pulse Oximetry 95 Oxygen Delivery Nasal Cannula Oxygen Flow Rate 3 Fraction of Inspired Oxygen 32 02/09/24 18:00 02/09/24 19:38 02/09/24 20:00 Temperature 36.8 C Pulse Rate 57 L 60 60 Respiratory Rate 16 16 Blood Pressure 164/70 H Pulse Oximetry 95 95 Oxygen Delivery Room Air Oxygen Flow Rate Fraction of Inspired Oxygen 32 02/09/24 23:39 02/09/24 23:20 02/10/24 00:00 Temperature 36.3 C L Pulse Rate 74 68 74 Respiratory Rate 18 19 18 Blood Pressure 147/95 H Pulse Oximetry 99 98 99 Oxygen Delivery BiPAP Room Air Oxygen Flow Rate
--- NOTE | 2024-02-10 16:00 | PM.IMPN ---
Progress Note: A&P Assessment and Plan (1) Acute hypoxemic respiratory failure: Code(s): J96.01 - Acute respiratory failure with hypoxia Status: Acute (2) NSTEMI (non-ST elevated myocardial infarction): Code(s): I21.4 - Non-ST elevation (NSTEMI) myocardial infarction Status: Acute (3) Acute CHF (congestive heart failure): Code(s): I50.9 - Heart failure, unspecified Status: Acute (4) Aortic stenosis: Code(s): I35.0 - Nonrheumatic aortic (valve) stenosis Status: Acute (5) Pulmonary edema: Code(s): J81.1 - Chronic pulmonary edema Status: Acute (6) Nicotine dependence: Code(s): F17.200 - Nicotine dependence, unspecified, uncomplicated Status: Acute (7) Hypertension: Code(s): I10 - Essential (primary) hypertension Status: Acute (8) History of stroke: Code(s): Z86.73 - Personal history of transient ischemic attack (TIA), and cerebral infarction without residual deficits Status: Acute Plan # Acute Respiratory Failure with Hypoxia - Possibly related to CHF exacerbation vs COPD exacerbation vs other. Chest x-ray on admission with mixed mild alveolar and interstitial pulmonary edema. - ABG's on admission 7.31/49/65/24 was placed on a BiPAP with subsequent improvement 7.40/43/61/26 - Initially on BIPAP but able to be weaned off, now on PRN 2L/NC supplemental O2. - Continue supplemental O2 to maintain sats > 90 %. Continue to wean oxygen # NSTEMI vs Hypoxia - Possibly related to demand ischemia secondary to hypoxemia. - Serial troponins 0.03 >>o.868>>2.46 >> 2.83<<1.760<<1.440respectively. - Currently denies any chest pain or shortness of breath or diaphoresis. - EKG: SR with RBBB. - ECHO with left ventricular hypertrophy concentric good systolic function grade 2 diastolic noncompliance severe aortic stenosis to moderate MR - Given a full dose of ASA and started on ASA, statin ,metoprolol and losartan. - Clopidogrel resumed. Cardiology consulted - Continue tele monitoring. Aspirin and Plavix and atorvastatin # Severe aortic stenosis new diagnosis follow-up as an outpatient basis for tavr workup # acute congestive heart failure diastolic HF Improved with diuresis - Echocardiogram demonstrates severe LVH with good systolic function and severe aortic valve stenosis with high gradient and valve area of 0.7 cm2. Obviously he requires aortic valve replacement. -He will need to complete his aortic valve workup at [facility] where aortic valve replacement can be carried out. -The importance of this in compliance with the plan was stressed with the patient and the family as survival data for severe aortic stenosis with heart failure is extremely poor without valve replacement. Lasix switched to oral #ECHO 1. Concentric left ventricular hypertrophy with good systolic function and grade 2 diastolic noncompliance. 2. Left atrial dilation. 3. Mild to moderate mitral regurgitation. 4. Severe aortic valve stenosis valve area 0.7 cm2, mean gradient 43. 5. Mild aortic regurgitation. # hypertension on losartan and metoprolol # opiate use disorder used heroin in the past states takes Suboxone 8 mg will start Suboxone # DVT prophylaxis Lovenox Subjective Date/time seen: 02/10/24 16:00 Interval history: Patient feeling better. 2 L oxygen. Has not gotten out of bed yet. Shortness of breath has improved. No chest pain. Has been using heroin but stopped 5 years ago and reports using Suboxone. PDMP reviewed. Also called pharmacy with no records of Suboxone being filled. One of the notes say he gets his off the street. He told me he gets it from a clinic Review of Systems Review of Systems: All systems reviewed & are unremarkable except as noted in HPI and below Exam Narrative: General: Fair appearing, appears older than his current age. Not in acute distress HEENT: Atraumatic, PERRL, moist oral mucosa, dental
[2024-02-10] MEDS: BUPRENORPHINE HCL (*CRX) 2 MG SUBLINGUAL TABLET 8 MG PO (17:19)
[2024-02-11] VITALS (11 sets, daily range): BP systolic 136–168; BP diastolic 46–68; PULSE 54–69; RESP 14–18; TEMP 36.4–37.1; O2SAT 91–97
--- NOTE | 2024-02-11 00:32 | PC.NURSE ---
This patient, Raulito Baig, was transferred to room 260-01 on 02/11/24 at 0030. Personal belongings sent with patient. Report given to JENNIFER Peterson. Appropriate documentation sent with patient.
[2024-02-11 04:50] LABS: Basophils Absolute Auto 0.1 K/mm3 (0.0-0.1); Basophils Percent Auto 0.9 % (0.2-1.2); Eosinophils Absolute Auto 0.2 K/mm3 (0-0.3); Eosinophils Percent Auto 4.4 % (0-4.4); Hematocrit 38.6 % (42.0-52.0); Hemoglobin 12.3 g/dL (14.0-18.0); Immature Granulocyte Absolute 0.02 K/mm3 (0.00-0.031); Immature Granulocyte Percent A 0.4 % (0-0.5); Lymphocytes Percent Auto 18.5 % (18.3-44.2); Mean Corpuscular HGB Conc 31.9 g/dl (32-36); Mean Corpuscular Hemoglobin 29.1 pg (26-34); Mean Corpuscular Volume 91.5 fl (80-100); Mean Platelet Volume 10.1 fl (7.4-10.4); Monocytes Absolute Auto 0.6 K/mm3 (0.1-0.6); Monocytes Percent Auto 10.4 % (2.6-8.5); Neutrophils Absolute Auto 3.5 K/mm3 (1.3-6.7); Neutrophils Percent Auto 65.4 % (45.5-73.1); Platelet Count Result 174 k/mm3 (150-375); Red Blood Count 4.22 M/mm3 (4.6-6.20); White Blood Count 5.4 K/mm3 (4.5-10.0)
[2024-02-11 05:00] LABS: Alanine Aminotransferase 9 U/L (6-50); Albumin Level 3.6 g/dL (3.5-5.1); Alkaline Phosphatase 65 U/L (38-126); Anion Gap 5 mmol/L (4-12); Aspartate Amino Transferase 15 U/L (17-59); Bilirubin,Total 0.6 mg/dL (0.2-1.3); Blood Urea Nitrogen 27 mg/dL (9-20); Calcium 8.8 mg/dL (8.4-10.2); Carbon Dioxide 33 mmol/L (22-30); Chloride 99 mmol/L (98-107); Estimated CRCL calculation 84 ml/min; Estimated Glomerular Filt Rate > 60; Glucose 93 mg/dL (65-110); Potassium 4.1 mmol/L (3.4-5.0); Sodium 137 mmol/L (137-145)
[2024-02-11] MEDS: ASPIRIN 81 MG ENTERIC TABLET PO (08:16)
[2024-02-11] MEDS: BUPRENORPHINE HCL (*CRX) 2 MG SUBLINGUAL TABLET 8 MG PO (08:16)
[2024-02-11] MEDS: ATORVASTATIN 40 MG TABLET 80 MG PO (08:16)
[2024-02-11] MEDS: ACETAMINOPHEN 325 MG TABLET 650 MG PO ×2 (08:17→16:39)
[2024-02-11] MEDS: LOSARTAN POTASSIUM 25 MG TABLET 50 MG PO (08:18)
[2024-02-11] MEDS: METOPROLOL SUCCINATE EXT REL 25 MG TABCR PO (08:18)
[2024-02-11] MEDS: FUROSEMIDE 40 MG TABLET PO (08:19)
[2024-02-11] MEDS: ENOXAPARIN 40 MG/0.4 ML SYRINGE SUB-Q (08:20)
--- NOTE | 2024-02-11 09:55 | PM.PNCARD ---
Progress Note: A&P Assessment and Plan (1) Aortic stenosis: Code(s): I35.0 - Nonrheumatic aortic (valve) stenosis Status: Acute (2) Acute CHF (congestive heart failure): Code(s): I50.9 - Heart failure, unspecified Status: Acute Plan Acute on chronic diastolic heart failure resolved Symptomatic sever aortic stenosis HTN controlled Plan Work up for TAVR can be completed as outpatient Cont Metoprolol Cont Losartan Subjective Date/time seen: 02/11/24 09:55 Interval history: no acute events Review of Systems Review of Systems: All systems reviewed & are unremarkable except as noted in HPI and below Exam Const: General: comfortable and no acute distress Other: Somewhat disheveled man in no distress, HENMT: Mouth: Yes moist mucous membranes Other: Very poor oral hygiene Eyes: General: appearance normal, both eyes and all related structures Sclera: sclerae normal Neck: Neck: supple and no JVD Resp: Effort & Inspection: normal respiratory effort Other: Breath sounds with few scattered rhonchi no rales prolonged expiratory phase Cardio: Rate: regular rate Rhythm: regular rhythm Heart sounds: Murmur heart sound present systolic Other: Grade 3/6 high-pitched systolic crescendo decrescendo murmur audible at the base GI: Auscultation: normal bowel sounds Skin: General skin exam: normal color Neuro: Speech: normal speech Other: Alert and responsive. Extrem: Other: No significant edema Psych: Mental Status: mental status grossly normal Affect: normal affect Objective Data Vital Signs Vital Signs: Vital Signs - 24 hr 02/10/24 10:00 02/10/24 11:36 02/10/24 12:00 Temperature 36.2 C L Pulse Rate 67 62 65 Respiratory Rate 21 H Blood Pressure 155/74 H Pulse Oximetry 95 Oxygen Delivery Oxygen Flow Rate 02/10/24 14:00 02/10/24 15:10 02/10/24 16:00 Temperature 36.9 C Pulse Rate 61 66 58 L Respiratory Rate 16 Blood Pressure 173/78 H Pulse Oximetry 98 Oxygen Delivery Oxygen Flow Rate 02/10/24 18:00 02/10/24 20:13 02/10/24 20:00 Temperature 36.9 C Pulse Rate 61 59 L 59 L Respiratory Rate 18 18 Blood Pressure 154/56 H Pulse Oximetry 95 95 Oxygen Delivery Nasal Cannula Oxygen Flow Rate 1 02/10/24 23:21 02/10/24 20:00 02/10/24 22:00 Temperature 36.9 C Pulse Rate 55 L 60 67 Respiratory Rate 20 Blood Pressure 148/63 H Pulse Oximetry 96 Oxygen Delivery Oxygen Flow Rate 02/11/24 00:00 02/10/24 23:51 02/10/24 20:45 Temperature Pulse Rate 59 L 55 L Respiratory Rate 20 Blood Pressure Pulse Oximetry 96 95 Oxygen Delivery Nasal Cannula Nasal Cannula Oxygen Flow Rate 1 1 02/11/24 04:00 02/11/24 04:00 02/11/24 08:18 Temperature 36.5 C Pulse Rate 58 L 65 64 Respiratory Rate 18 Blood Pressure 136/48 L Pulse Oximetry 92 Oxygen Delivery Oxygen Flow Rate 02/11/24 08:00 02/11/24 08:29 Temperature 36.8 C Pulse Rate 66 Respiratory Rate 18 Blood Pressure 168/68 H Pulse Oximetry 91 92 Oxygen Delivery Room Air Oxygen Flow Rate Intake/Output Intake/Output: Intake & Output 02/08/24 02/09/24 02/10/24 02/11/24 23:59 23:59 23:59 23:59 Intake Total 735 1890 720 Output Total 1950 1900 1125 453 [facility] -[phone] [phone] Meds/Results Medications: Active Medications Generic Name Dose Route Start Last Admin Trade Name Ciro PRN Reason Stop Dose Admin Acetaminophen 650 mg 02/09/24 13:31 02/11/24 08:17 Acetaminophen 325 Mg Tablet PO 650 mg Q6H PRN Administration Mild Pain (1-3) or Fever Aspirin 81 mg 02/09/24 09:00 02/11/24 08:16 Aspirin 81 Mg Enteric Tablet PO 81 mg QAM MARIA ESTHER Administration Atorvastatin Calcium 80 mg 02/08/24 16:40 02/11/24 08:16 Atorvastatin 40 Mg Tablet PO 80 mg DAILY MARIA ESTHER Administration Buprenorphine HCl 8 mg 02/10/24 16:05 02/11/24 08:16
--- NOTE | 2024-02-11 13:54 | PM.IMPN ---
Progress Note: A&P Assessment and Plan (1) Acute hypoxemic respiratory failure: Code(s): J96.01 - Acute respiratory failure with hypoxia Status: Acute (2) NSTEMI (non-ST elevated myocardial infarction): Code(s): I21.4 - Non-ST elevation (NSTEMI) myocardial infarction Status: Acute (3) Acute CHF (congestive heart failure): Code(s): I50.9 - Heart failure, unspecified Status: Acute (4) Aortic stenosis: Code(s): I35.0 - Nonrheumatic aortic (valve) stenosis Status: Acute (5) Pulmonary edema: Code(s): J81.1 - Chronic pulmonary edema Status: Acute (6) Nicotine dependence: Code(s): F17.200 - Nicotine dependence, unspecified, uncomplicated Status: Acute (7) Hypertension: Code(s): I10 - Essential (primary) hypertension Status: Acute (8) History of stroke: Code(s): Z86.73 - Personal history of transient ischemic attack (TIA), and cerebral infarction without residual deficits Status: Acute Plan # Acute Respiratory Failure with Hypoxia - Possibly related to CHF exacerbation vs COPD exacerbation vs other. Chest x-ray on admission with mixed mild alveolar and interstitial pulmonary edema. - ABG's on admission 7.31/49/65/24 was placed on a BiPAP with subsequent improvement 7.40/43/61/26 - Initially on BIPAP but able to be weaned off, now on PRN 2L/NC supplemental O2. - Continue supplemental O2 to maintain sats > 90 %. Continue to wean oxygen still on oxygen, willl do home oxygen evaluation # NSTEMI vs Hypoxia - Possibly related to demand ischemia secondary to hypoxemia. - Serial troponins 0.03 >>o.868>>2.46 >> 2.83<<1.760<<1.440respectively. - Currently denies any chest pain or shortness of breath or diaphoresis. - EKG: SR with RBBB. - ECHO with left ventricular hypertrophy concentric good systolic function grade 2 diastolic noncompliance severe aortic stenosis to moderate MR - Given a full dose of ASA and started on ASA, statin ,metoprolol and losartan. - Clopidogrel resumed. Cardiology consulted - Continue tele monitoring. Aspirin and Plavix and atorvastatin # Severe aortic stenosis new diagnosis follow-up as an outpatient basis for tavr workup # acute congestive heart failure diastolic HF Improved with diuresis - Echocardiogram demonstrates severe LVH with good systolic function and severe aortic valve stenosis with high gradient and valve area of 0.7 cm2. Obviously he requires aortic valve replacement. -He will need to complete his aortic valve workup at [facility] where aortic valve replacement can be carried out. -The importance of this in compliance with the plan was stressed with the patient and the family as survival data for severe aortic stenosis with heart failure is extremely poor without valve replacement. Lasix switched to oral #ECHO 1. Concentric left ventricular hypertrophy with good systolic function and grade 2 diastolic noncompliance. 2. Left atrial dilation. 3. Mild to moderate mitral regurgitation. 4. Severe aortic valve stenosis valve area 0.7 cm2, mean gradient 43. 5. Mild aortic regurgitation. # hypertension on losartan and metoprolol # Rectal pain: will give prep h for this # opiate use disorder used heroin in the past states takes Suboxone 8 mg will start Suboxone # DVT prophylaxis Lovenox Subjective Date/time seen: 02/11/24 13:54 Interval history: complains of rectal pain. hxo f hemorroids in the past, no fever, chillls. still on supplemental oxgyen. Review of Systems Review of Systems: All systems reviewed & are unremarkable except as noted in HPI and below Exam Narrative: General: Fair appearing, appears older than his current age. Not in acute distress HEENT: Atraumatic, PERRL, moist oral mucosa, dental cares. Neck: Supple. Respiratory: Coarse breath sound bilaterally no respiratory distress Cardiovascular:RRR, Gastrointestinal: Soft, non-tender, +ve bowel so
--- NOTE | 2024-02-11 14:02 | PCOTNOTE ---
Attempted OT evaluation; pt. refused stating he was in too much pain. Will attempt again as able
[2024-02-11] MEDS: PHENYLEPH/MINERAL OIL/PETROLAT OINTMENT 57 GM 1 APPLIC RECTAL (15:04)
[2024-02-11] MEDS: ALPRAZolam (*CRX) 0.25 MG TABLET PO (21:39)
[2024-02-12] VITALS (8 sets, daily range): BP systolic 126–160; BP diastolic 49–65; PULSE 54–80; RESP 16; TEMP 36.4–36.7; O2SAT 93–98
[2024-02-12 04:58] LABS: Basophils Percent Auto 0.7 % (0.2-1.2); Eosinophils Absolute Auto 0.2 K/mm3 (0-0.3); Eosinophils Percent Auto 3.8 % (0-4.4); Hematocrit 37.2 % (42.0-52.0); Immature Granulocyte Absolute 0.02 K/mm3 (0.00-0.031); Immature Granulocyte Percent A 0.3 % (0-0.5); Lymphocytes Absolute Auto 1.06 K/mm3 (0.9-3.2); Lymphocytes Percent Auto 18.4 % (18.3-44.2); Mean Corpuscular HGB Conc 32.3 g/dl (32-36); Mean Corpuscular Hemoglobin 29.9 pg (26-34); Mean Corpuscular Volume 92.5 fl (80-100); Mean Platelet Volume 10.4 fl (7.4-10.4); Monocytes Absolute Auto 0.7 K/mm3 (0.1-0.6); Monocytes Percent Auto 11.3 % (2.6-8.5); Neutrophils Absolute Auto 3.8 K/mm3 (1.3-6.7); Neutrophils Percent Auto 65.5 % (45.5-73.1); Platelet Count Result 173 k/mm3 (150-375); Red Blood Count 4.02 M/mm3 (4.6-6.20); Red Cell Distribution Width 14.1 % (11.5-14.5); White Blood Count 5.8 K/mm3 (4.5-10.0)
[2024-02-12 05:20] LABS: Alanine Aminotransferase 9 U/L (6-50); Albumin Level 3.7 g/dL (3.5-5.1); Alkaline Phosphatase 59 U/L (38-126); Anion Gap 7 mmol/L (4-12); Aspartate Amino Transferase 15 U/L (17-59); Bilirubin,Total 0.5 mg/dL (0.2-1.3); Blood Urea Nitrogen 33 mg/dL (9-20); Calcium 8.9 mg/dL (8.4-10.2); Carbon Dioxide 31 mmol/L (22-30); Chloride 101 mmol/L (98-107); Estimated CRCL calculation 62 ml/min; Estimated Glomerular Filt Rate > 60; Glucose 103 mg/dL (65-110); Magnesium 2.1 mg/dL (1.6-2.3); Potassium 4.1 mmol/L (3.4-5.0); Sodium 139 mmol/L (137-145)
--- NOTE | 2024-02-12 08:07 | PM.PNCARD ---
Progress Note: A&P Assessment and Plan (1) Aortic stenosis: Code(s): I35.0 - Nonrheumatic aortic (valve) stenosis Status: Acute (2) Acute CHF (congestive heart failure): Code(s): I50.9 - Heart failure, unspecified Status: Acute Plan Acute on chronic diastolic heart failure resolved Symptomatic sever aortic stenosis HTN controlled Elevated troponin likely demand ischemia in the setting of CHF, she will have cardiac catheterization as a workup for TAVR and also will be evaluating for coronary artery disease Plan Work up for TAVR can be completed as outpatient Cont Metoprolol Cont Losartan Subjective Date/time seen: 02/12/24 08:07 Interval history: no acute events Feels fatigued chills and weakness this morning Review of Systems Review of Systems: All systems reviewed & are unremarkable except as noted in HPI and below Exam Const: General: comfortable and no acute distress Other: Somewhat disheveled man in no distress, HENMT: Mouth: Yes moist mucous membranes Other: Very poor oral hygiene Eyes: General: appearance normal, both eyes and all related structures Sclera: sclerae normal Neck: Neck: supple and no JVD Resp: Effort & Inspection: normal respiratory effort Other: Breath sounds with few scattered rhonchi no rales prolonged expiratory phase Cardio: Rate: regular rate Rhythm: regular rhythm Heart sounds: Murmur heart sound present systolic Other: Grade 3/6 high-pitched systolic crescendo decrescendo murmur audible at the base GI: Auscultation: normal bowel sounds Skin: General skin exam: normal color Neuro: Speech: normal speech Other: Alert and responsive. Extrem: Other: No significant edema Psych: Mental Status: mental status grossly normal Affect: normal affect Objective Data Vital Signs Vital Signs: Vital Signs - 24 hr 02/11/24 08:18 02/11/24 08:29 02/11/24 12:00 Temperature 36.5 C Pulse Rate 64 69 Respiratory Rate 14 Blood Pressure 142/47 H Pulse Oximetry 92 97 Oxygen Delivery Room Air Oxygen Flow Rate Fraction of Inspired Oxygen 02/11/24 08:10 02/11/24 15:27 02/11/24 12:00 Temperature Pulse Rate 57 L Respiratory Rate Blood Pressure Pulse Oximetry 97 Oxygen Delivery Nasal Cannula Room Air Oxygen Flow Rate 1 Fraction of Inspired Oxygen 02/11/24 16:09 02/11/24 16:00 02/11/24 20:00 Temperature 37.1 C 36.4 C Pulse Rate 56 L 62 54 L Respiratory Rate 16 16 Blood Pressure 145/55 H 146/46 H Pulse Oximetry 94 95 Oxygen Delivery Oxygen Flow Rate Fraction of Inspired Oxygen 02/11/24 20:00 02/12/24 00:00 02/11/24 21:12 Temperature 36.5 C Pulse Rate 54 L 61 Respiratory Rate 16 16 Blood Pressure 143/49 H Pulse Oximetry 95 95 95 Oxygen Delivery Room Air Room Air Oxygen Flow Rate Fraction of Inspired Oxygen 28 02/11/24 20:00 02/12/24 00:00 02/12/24 04:00 Temperature Pulse Rate 58 L 57 L 55 L Respiratory Rate Blood Pressure Pulse Oximetry Oxygen Delivery Oxygen Flow Rate Fraction of Inspired Oxygen 02/12/24 05:30 Temperature 36.6 C Pulse Rate 54 L Respiratory Rate 16 Blood Pressure 126/65 Pulse Oximetry 94 Oxygen Delivery Oxygen Flow Rate Fraction of Inspired Oxygen Intake/Output Intake/Output: Intake & Output 02/09/24 02/10/24 02/11/24 02/12/24 23:59 23:59 23:59 23:59 Intake Total 1890 720 360 250 Output Total 1900 1125 1125 300 Balance -10 -405 -765 -50 Meds/Results Medications: Active Medications Generic Name Dose Route Start Last Admin Trade Name Kalyanq PRN Reason Stop Dose Admin Acetaminophen 650 mg 02/09/24 13:31 02/11/24 16:39 Acetaminophen 325 Mg Tablet PO 650 mg Q6H PRN Administration Mild Pain (1-3) or Fever Aspirin 81 mg 02/09/24 09:00 02/11/24 08:16 Aspirin 81 Mg Enteric Tablet PO 81 mg QAM MARIA ESTHER Administration Atorvastatin Ca
[2024-02-12] MEDS: ASPIRIN 81 MG ENTERIC TABLET PO (08:57)
[2024-02-12] MEDS: BUPRENORPHINE HCL (*CRX) 2 MG SUBLINGUAL TABLET 8 MG PO (08:57)
[2024-02-12] MEDS: ATORVASTATIN 40 MG TABLET 80 MG PO (08:57)
[2024-02-12] MEDS: LOSARTAN POTASSIUM 25 MG TABLET 50 MG PO (08:58)
[2024-02-12] MEDS: FUROSEMIDE 40 MG TABLET PO (08:58)
[2024-02-12] MEDS: ENOXAPARIN 40 MG/0.4 ML SYRINGE SUB-Q (08:58)
[2024-02-12] MEDS: ACETAMINOPHEN 325 MG TABLET 650 MG PO (08:59)
[2024-02-12] MEDS: PHENYLEPH/MINERAL OIL/PETROLAT OINTMENT 57 GM 1 APPLIC RECTAL (09:00)
[2024-02-12] MEDS: METOPROLOL SUCCINATE EXT REL 25 MG TABCR PO (09:00)
--- NOTE | 2024-02-12 11:41 | PM.DS ---
DS: Admitting Diagnosis Discharge Date 02/12/2024 Admitting Diagnosis Shortness of breath DS: Discharge Diagnosis Discharge Diagnosis (1) Acute hypoxemic respiratory failure: Code(s): J96.01 - Acute respiratory failure with hypoxia Status: Acute (2) NSTEMI (non-ST elevated myocardial infarction): Code(s): I21.4 - Non-ST elevation (NSTEMI) myocardial infarction Status: Acute (3) Acute CHF (congestive heart failure): Code(s): I50.9 - Heart failure, unspecified Status: Acute (4) Aortic stenosis: Code(s): I35.0 - Nonrheumatic aortic (valve) stenosis Status: Acute (5) Pulmonary edema: Code(s): J81.1 - Chronic pulmonary edema Status: Acute (6) Nicotine dependence: Code(s): F17.200 - Nicotine dependence, unspecified, uncomplicated Status: Acute (7) Hypertension: Code(s): I10 - Essential (primary) hypertension Status: Acute (8) History of stroke: Code(s): Z86.73 - Personal history of transient ischemic attack (TIA), and cerebral infarction without residual deficits Status: Acute DS: Summary Hospital Course Hospital Course: # Acute Respiratory Failure with Hypoxia - Possibly related to CHF exacerbation vs COPD exacerbation vs other. Chest x-ray on admission with mixed mild alveolar and interstitial pulmonary edema. - ABG's on admission 7.31/49/65/24 was placed on a BiPAP with subsequent improvement 7.40/43/61/26 - Initially on BIPAP but able to be weaned off, now on PRN 2L/NC supplemental O2. - Continue supplemental O2 to maintain sats > 90 %. Continue to wean oxygen And off oxygen by the time of discharge # NSTEMI vs Hypoxia - Possibly related to demand ischemia secondary to hypoxemia. - Serial troponins 0.03 >>o.868>>2.46 >> 2.83<<1.760<<1.440respectively. - Currently denies any chest pain or shortness of breath or diaphoresis. - EKG: SR with RBBB. - ECHO with left ventricular hypertrophy concentric good systolic function grade 2 diastolic noncompliance severe aortic stenosis to moderate MR - Given a full dose of ASA and started on ASA, statin ,metoprolol and losartan. - Clopidogrel resumed. Cardiology consulted - Continue tele monitoring. Aspirin and Plavix and atorvastatin # Severe aortic stenosis new diagnosis follow-up as an outpatient basis for tavr workup # acute congestive heart failure diastolic HF Improved with diuresis - Echocardiogram demonstrates severe LVH with good systolic function and severe aortic valve stenosis with high gradient and valve area of 0.7 cm2. Obviously he requires aortic valve replacement. -He will need to complete his aortic valve workup at [facility] where aortic valve replacement can be carried out. -The importance of this in compliance with the plan was stressed with the patient and the family as survival data for severe aortic stenosis with heart failure is extremely poor without valve replacement. Lasix switched to oral Well compensated at the time of discharge #ECHO 1. Concentric left ventricular hypertrophy with good systolic function and grade 2 diastolic noncompliance. 2. Left atrial dilation. 3. Mild to moderate mitral regurgitation. 4. Severe aortic valve stenosis valve area 0.7 cm2, mean gradient 43. 5. Mild aortic regurgitation. # hypertension on losartan and metoprolol # Rectal pain: will give prep h for this # opiate use disorder used heroin in the past states takes Suboxone 8 mg will start Suboxone. Follow-up as an outpatient basis # DVT prophylaxis Lovenox Time Spent with Patient Time attestation: Total time spent providing and/or coordinating discharge services: 45 minutes Exam Narrative: General: Fair appearing, appears older than his current age. Not in acute distress HEENT: Atraumatic, PERRL, moist oral mucosa, dental cares. Neck: Supple. Respiratory: Coarse breath sound bilaterally no respiratory distress Cardiovascular:RRR, [place]
== END 2024-02-12 14:00 | disposition home or self-care (01) | DRG 280 ==
LOC: ANHED 08:39 → ANHIMU 08:39 → ANH2MED 02-11 00:32
PROVIDERS: Internal Medicine; Admitting Provider General Practice; Emergency Provider Emergency Medicine; Visit Provider Internal Medicine
DX: I11.0 Hypertensive heart disease with heart failure (principal); I50.33 Acute on chronic diastolic (congestive) heart failure; I21.A1 Myocardial infarction type 2; J96.01 Acute respiratory failure with hypoxia; J44.1 Chronic obstructive pulmonary disease with (acute) exacerbation; I35.0 Nonrheumatic aortic (valve) stenosis; K62.89 Other specified diseases of anus and rectum; F11.90 Opioid use, unspecified, uncomplicated; F17.210 Nicotine dependence, cigarettes, uncomplicated; Z20.822 Contact with and (suspected) exposure to COVID-19; Z86.73 Personal history of transient ischemic attack (TIA), and cerebral infarction without residual deficits; Z99.81 Dependence on supplemental oxygen
CPT/HCPCS: 36415; 36600; 71045; 74176; 80053; 82805; 83605; 83690; 83735; 83880; 84145; 84484; 85025; 85027; 85610; 85730; 87040; 87637; 93005; 94002; 94003; 96374; 97161; 99291; A9270; C8929; J1644; J1650; J1940; Q9957